=== PATIENT | male | born 1990 | race Caucasian/White ===

== ENCOUNTER 2023-04-03 19:14 | Emergency (ER) | payer BC, SELFPAY ==
[2023-04-03] VITALS (11 sets, daily range): BP systolic 92–185; BP diastolic 43–95; PULSE 86–145; RESP 14–25; TEMP 36.9; O2SAT 94–97; BMI 36.9
--- NOTE | 2023-04-03 19:31 | ECG_ITS ---
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
--- NOTE | 2023-04-03 19:33 | ED_ITS ---
HPI - Arrhythmia/Palpitations General Chief Complaint: Chest Pain Stated Complaint: CHEST PAIN Time Seen by Provider: 04/03/23 19:17 Source: patient and family Source comment: Pt slurring speech and feels like he is going to pass out. Mode of arrival: Wheelchair History of Present Illness HPI narrative: patient is a 32-year-old male who presents to the emergency department for an onset of palpitations and sensation of his heart racing about forty minutes ago. Patient had a similar episode six weeks ago and was managed by his PCP for an onset of atrial fibrillation, his states that he only took the medication he was prescribed for one day because his symptoms subsided. He has not seen a security attendant. He did not follow-up for Holter monitoring over fourteen days as he was instructed. He states he feels very dizzy, lightheaded like he may pass out. Patient's answers majority of questions about his history. He has had no recent illness and not been taking any [id number] stimulants or medic ations. Related Data Home Medications Medication Instructions Recorded Confirmed lisinopril 20 mg tablet 20 mg PO QDAY 04/03/23 04/03/23 tadalafil 5 mg tablet 5 mg PO QDAY 04/03/23 04/03/23 testosterone cypionate 200 mg/mL mg subcut Q7D 04/03/23 intramuscular oil Previous Rx's Medication Instructions Recorded metoprolol tartrate 25 mg tablet 25 mg PO DAILY #10 tabs 04/03/23 Allergies Allergy/AdvReac Type Severity Reaction Status Date / Time No Known Drug Allergies Allergy Verified 04/03/23 19:29 Review of Systems ROS Constitutional Denies: fever or chills Ears, nose, mouth, and throat Denies: throat pain Cardiovascular Reports: palpitations; Denies: chest pain Respiratory Reports: shortness of breath Gastrointestinal Denies: nausea or vomiting Integumentary/Breast Denies: rash Neurological Reports: dizziness; Denies: headache Allergic/Immunologic Denies: hives PFSH [facility] Social History Smoking status: Former smoker Exam Narrative Exam Narrative: Gen.: Awake, alert, in no distress Head: Normocephalic, atraumatic ENT: Moist mucous membranes Respiratory: No respiratory distress, lungs clear bilaterally Cardio: tachycardia Gastrointestinal: Abdomen is soft, nondistended and nontender to palpation Extremities: Moves extremities equally, no injuries noted Psych: Normal mood and affect Neuro: No focal neuro deficit Skin: Warm, diaphoretic, intact Constitutional Vital Signs, click to edit/add: Last Vital Signs Temp 98.4 F 04/03/23 19:21 Pulse 92 H 04/03/23 21:15 Resp 14 04/03/23 21:15 BP 131/82 H 04/03/23 21:30 Pulse Ox 95 04/03/23 21:15 O2 Del Method Room Air 04/03/23 19:21 Course Vital Signs Vital signs: Vital Signs Temperature 98.4 F 04/03/23 19:21 Pulse Rate 91 H 04/03/23 19:21 Respiratory Rate 14 04/03/23 19:21 Blood Pressure 185/95 H 04/03/23 19:21 Pulse Oximetry 95 04/03/23 19:21 Oxygen Delivery Method Room Air 04/03/23 19:21 Temperature 98.4 F 04/03/23 19:21 Pulse Rate 92 H 04/03/23 21:15 Respiratory Rate 14 04/03/23 21:15 Blood Pressure 131/82 H 04/03/23 21:30 Pulse Oximetry 95 04/03/23 21:15 Oxygen Delivery Method Room Air 04/03/23 19:21 MDM - Arrhythmia/Palpitations MDM Narrative Medical decision making narrative: on arrival to the emergency department, patient's initial vital signs show tachycardia and he was noted to be in an atrial rhythm, possibly atrial fibrillation versus sinus tachycardia. After labs, IV and Cardizem were ordered for him, it was noted that the patient had converted to normal sinus rhythm. Repeat EKG shows rate controlled normal sinus rhythm with no acute changes. Given the patient's clinical history he is still going to undergo a workup, labs and d-dimer are within normal limits. patient has stable vital signs after conversion to normal sinus. Discussed with patient and his that he should be back on metoprolol 25 mg daily and follow with cardiology. He is given a referral for electrophysiology at [facility] as well. Follow-up with PCP and cardiology and return to the Emergency Room if symptoms change or worsen. Potassium was noted to be low, this was replenished in the emergency department. patient was reevaluated by attending physician after he converted to normal sinus rhythm, stable for discharge at this time Medical Records Attestation: I reviewed the patient's medical records. Lab Data Attestation: I reviewed the patient's lab results. Labs: Lab Results 04/03/23 04/03/23 Range/Units 19:30 19:45 WBC 13.2 H (4.0-11.0) 10^3/uL RBC 5.57 (4.70-6.10) 10^6/uL Hgb 15.3 (14.0-18.0) g/dL Hct 49.1 (42.0-54.0) % MCV 88.2 (80.0-94.0) fL MCH 27.5 (25.9-34.0) pg MCHC 31.2 (29.9-35.2) g/dL RDW 14.4 (11.0-15.0) % Plt Count 338 (150-450) 10^3/uL MPV 11.6 (9.5-13.5) fL Seg Neuts % (Manual) 43.0 Lymphocytes % (Manual) 22.0 (20.5-60.0) % Atypical Lymphs % (Man) 22.0 % Monocytes % (Manual) 10.0 (1.7-12.0) % Eosinophils % (Manual) 3.0 (0.9-7.0) % Basophils % (Manual) 0.0 L (0.2-2.0) % Neutrophils # (Manual) 5.67 (1.4-6.5) 10^3/uL Lymphocytes # (Manual) 2.90 (1.20-3.80) 10^3/uL Monocytes # (Manual) 1.32 H (0.30-0.80) 10^3/uL Eosinophils # (Manual) 0.39 (0.00-0.70) 10^3/uL Basophils # (Manual) 0.00 (0.00-0.10) 10^3/uL PT 11.2 (9.0-11.6) sec INR 1.06 APTT 21.4 L (22.3-36.2) sec D-Dimer 0.19 (<=0.59) mg/L FEU Sodium 138 (136-145) mmol/L Potassium 2.6 L* (3.5-5.1) mmol/L Chloride 101 (98-107) mmol/L Carbon Dioxide 23.5 (21.0-32.0) mmol/L Anion Gap 16.1 BUN 12.0 (7.0-18.0) mg/dL Creatinine 1.35 H (0.70-1.30) mg/dL Est GFR ( Amer) >60 (>=60) Est GFR (Non-Af Amer) >60 (>=60) BUN/Creatinine Ratio 8.9 Glucose 143 H (74-106) mg/dL Calcium 8.5 (8.5-10.1) mg/dL Total Bilirubin 0.5 (0.2-1.0) mg/dL AST 36 (15-37) U/L ALT 43 (16-63) U/L Alkaline Phosphatase 37 L (46-116) U/L Troponin I High Sens 5.1 (4.0-76.1) pg/mL Total Protein 7.6 (6.4-8.2) g/dL Albumin 4.5 (3.4-5.0) g/dL Globulin 3.1 g/dL Albumin/Globulin Ratio 1.5 TSH 0.771 (0.358-3.740) uIU/mL Imaging Data Chest x-ray: Attestation: I have reviewed the pertinent imaging results. ECG Data Attestation: I personally reviewed and interpreted this ECG as follows: (EKG #1: Undetermined rhythm at a rate of 149, right bundle branch block with no acute ST elevation. EKG reviewed by attending physician EKG #2: Normal sinus rhythm at a rate of ninety-six with an incomplete right bundle-branch block, no acute ST elevation or ectopy. EKG reviewed by attending physici) Discharge Plan Discharge Chief Complaint: Chest Pain Clinical Impression: Palpitations, AF (paroxysmal atrial fibrillation) Patient Disposition: Home, Self-Care Time of Disposition Decision: 21:17 Condition: Good Mode of Transportation: Private Vehicle Prescriptions / Home Meds: New metoprolol tartrate 25 mg tablet 25 mg PO DAILY Qty: 10 0RF No Action lisinopril 20 mg tablet 20 mg PO QDAY tadalafil 5 mg tablet 5 mg PO QDAY testosterone cypionate 200 mg/mL oil subcut Q7D Instructions: A-fib (Atrial Fibrillation) (ED), Heart Palpitations (ED) Stand Alone Forms: Portal Instructions Referrals: FURLONG,CAIT G [Primary Care Provider] - 1 week Discharge Date/Time: 04/03/23 21:51
--- NOTE | 2023-04-03 19:38 | ECG_ITS ---
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
[2023-04-03] MEDS: 0.9 % SODIUM CHLORIDE 1,000 ML 1000 ML IV (19:48)
[2023-04-03 19:58] LABS: Hematocrit 49.1 % (42.0-54.0); Hemoglobin 15.3 g/dL (14.0-18.0); Mean Corpuscular HGB Conc 31.2 g/dL (29.9-35.2); Mean Corpuscular Hemoglobin 27.5 pg (25.9-34.0); Mean Corpuscular Volume 88.2 fL (80.0-94.0); Mean Platelet Volume 11.6 fL (9.5-13.5); Platelet Count 338 10^3/uL (150-450); Red Blood Count 5.57 10^6/uL (4.70-6.10); Red Cell Distribution Width 14.4 % (11.0-15.0); White Blood Count 13.2 10^3/uL (4.0-11.0)
[2023-04-03 20:16] LABS: D Dimer 0.19 mg/L FEU (<=0.59); INR 1.06; Partial Thromboplastin Time 21.4 sec (22.3-36.2); Prothrombin Time 11.2 sec (9.0-11.6)
--- NOTE | 2023-04-03 20:20 | XR_ITS ---
The [address] [address] Patient Name: VALERI COLEMAN MRN: [id number] date: 1990 Sex: M Assigned Patient Location: ER Current Patient Location: ER Accession/Order Number: [id number] Exam Date: 04/03/2023 20:25 Report Date: 04/03/2023 21:08 At the request of: NIKKIE AGUILLON Procedure: XR chest 1V EXAM: XR chest 1V HISTORY: Palpitations COMPARISON: None. TECHNIQUE: AP portable study FINDINGS: There are bibasilar infiltrates, more prominent on the left than on the right. Cardiomegaly is noted. Bony structures are unremarkable. XR/XR chest 1V IMPRESSION: Cardiomegaly Bibasilar infiltrates. Differential considerations include atelectasis versus early pneumonia. Electronically authenticated by: Nallely AMBROSIO Date: 04/03/2023 21:08
[2023-04-03 20:24] LABS: Eosinophils Absolute Manual 0.39 10^3/uL (0.00-0.70); Monocytes Absolute Manual 1.32 10^3/uL (0.30-0.80); Segmented Neut Absolute Manual 5.67 10^3/uL (1.4-6.5)
[2023-04-03 20:24] LABS: Alanine Aminotransferase 43 U/L (16-63); Albumin Globulin Ratio 1.5; Albumin Level 4.5 g/dL (3.4-5.0); Alkaline Phosphatase 37 U/L (46-116); Anion Gap 16.1; Aspartate Amino Transferase 36 U/L (15-37); BUN Creatinine Ratio 8.9; Bilirubin Total 0.5 mg/dL (0.2-1.0); Calcium 8.5 mg/dL (8.5-10.1); Carbon Dioxide 23.5 mmol/L (21.0-32.0); Chloride 101 mmol/L (98-107); Estimated GFR (African America >60 (>=60); Estimated GFR (Non-African Ame >60 (>=60); Globulin 3.1 g/dL; Glucose 143 mg/dL (74-106); Sodium 138 mmol/L (136-145); Total Protein 7.6 g/dL (6.4-8.2); Troponin I High Sensitivity 5.1 pg/mL (4.0-76.1)
[2023-04-03 20:25] LABS: Thyroid Stimulating Hormone 0.771 uIU/mL (0.358-3.740)
[2023-04-03 20:27] LABS: Potassium 2.6 mmol/L (3.5-5.1)
[2023-04-03] MEDS: POTASSIUM CHLORIDE 10 MEQ ER TABLET 40 MEQ PO (20:41)
[2023-04-03] MEDS: POTASSIUM CHLORIDE IN WATER 10 MEQ/100 ML PIGGYBACK 100 MEQ IV (20:41)
== END 2023-04-03 21:51 | disposition home or self-care (01) ==
PROVIDERS: Physician Assistant; Emergency Provider Emergency Medicine; PCP Family Medicine
DX: R00.2 Palpitations (principal); I48.0 Paroxysmal atrial fibrillation; Z79.899 Other long term (current) drug therapy; Z87.891 Personal history of nicotine dependence
CPT/HCPCS: 36415; 71045; 80053; 84443; 84484; 85007; 85025; 85378; 85610; 85730; 93005; 96361; 96365; 99285

== ENCOUNTER 2024-11-10 12:20 | Observation (INO) | payer BC, SELFPAY ==
[2024-11-10] VITALS (32 sets, daily range): BP systolic 105–172; BP diastolic 65–119; PULSE 50–149; TEMP 36.4–37.2; O2SAT 96–100; BMI 38.0; BMI 38.5
--- NOTE | 2024-11-10 12:49 | ECG_ITS ---
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
[2024-11-10 13:06] LABS: Basophils Percent Auto 0.2 % (0.2-2.0); Eosinophils Absolute Auto 0.1 10^3/uL (0.0-0.7); Eosinophils Percent Auto 0.6 % (0.9-7.0); Hemoglobin 16.1 g/dL (14.0-18.0); Immature Granulocytes Abs Auto 0.03 10^3/uL (0.00-0.03); Immature Granulocytes Pct Auto 0.4 % (0.0-0.5); Lymphocytes Absolute Auto 2.2 10^3/uL (1.2-3.8); Mean Corpuscular HGB Conc 32.9 g/dL (29.9-35.2); Mean Corpuscular Hemoglobin 29.1 pg (25.9-34.0); Mean Corpuscular Volume 88.6 fL (80.0-94.0); Mean Platelet Volume 11.8 fL (9.5-13.5); Monocytes Absolute Auto 0.8 10^3/uL (0.3-0.8); Monocytes Percent Auto 9.2 % (1.7-12.0); Neutrophils Absolute Auto 5.2 10^3/uL (1.4-6.5); Neutrophils Percent Auto 62.6 % (43.0-75.0); Platelet Count 245 10^3/uL (150-450); Red Blood Count 5.53 10^6/uL (4.70-6.10); Red Cell Distribution Width 13.2 % (11.0-15.0); White Blood Count 8.3 10^3/uL (4.0-11.0)
[2024-11-10] MEDS: 0.9 % SODIUM CHLORIDE 1,000 ML 1000 ML IV (13:10)
[2024-11-10] MEDS: METOPROLOL TARTRATE 5 MG/5 ML VIAL IVP (13:10)
[2024-11-10 13:19] LABS: INR 1.03; Prothrombin Time 10.9 sec (9.0-11.6)
[2024-11-10 13:23] LABS: Cannabinoid Screen Urine POSITIVE (NEGATIVE)
[2024-11-10 13:24] LABS: Amphetamine Screen Urine NEGATIVE (NEGATIVE); Barbiturates Screen Urine NEGATIVE (NEGATIVE); Benzodiazepines Screen Urine NEGATIVE (NEGATIVE); Buprenorphine Screen Urine NEGATIVE (NEGATIVE); Cocaine Screen Urine NEGATIVE (NEGATIVE); Methadone Screen Urine NEGATIVE (NEGATIVE); Methamphetamines Screen Urine NEGATIVE (NEGATIVE); Opiate Screen Urine NEGATIVE (NEGATIVE); Oxycodone Screen Urine NEGATIVE (NEGATIVE); Phencyclidine Screen Urine NEGATIVE (NEGATIVE); Tricyclic Antidepressant Urine NEGATIVE (NEGATIVE)
[2024-11-10 13:31] LABS: Alanine Aminotransferase 41 U/L (16-63); Albumin Globulin Ratio 1.3; Albumin Level 4.4 g/dL (3.4-5.0); Alkaline Phosphatase 44 U/L (46-116); Anion Gap 13.2; Aspartate Amino Transferase 29 U/L (15-37); BUN Creatinine Ratio 8.6; Bilirubin Total 0.5 mg/dL (0.2-1.0); Calcium 9.2 mg/dL (8.5-10.1); Carbon Dioxide 29.6 mmol/L (21.0-32.0); Chloride 101 mmol/L (98-107); Estimated GFR (African America >60 (>=60 mL/min/1.73m^2); Estimated GFR (Non-African Ame 58 (>=60 mL/min/1.73m^2); Globulin 3.4 g/dL; Glucose 81 mg/dL (74-106); Magnesium 1.7 mg/dL (1.8-2.4); Potassium 3.8 mmol/L (3.5-5.1); Sodium 140 mmol/L (136-145); Total Protein 7.8 g/dL (6.4-8.2); Troponin I High Sensitivity 7.5 pg/mL (4.0-76.1)
[2024-11-10 13:33] LABS: Ethanol <3 mg/dL
[2024-11-10 13:34] LABS: Thyroid Stimulating Hormone 3.388 uIU/mL (0.358-3.740)
[2024-11-10] MEDS: MAGNESIUM SULFATE/D5W 1 GM/100 ML PREMIX IV (14:36)
--- NOTE | 2024-11-10 14:58 | ECG_ITS ---
The [facility] Test Date: 2024-11-10 Pat Name: VALERI COLEMAN Department: Room: - Gender: Male Triage Clinician: : 1990 Requested By: [id number] Order Number: [id number] Reading MD: BALTAZAR DUARTE Measurements Intervals [place] Rate: 103 P: -25377 [place]: -63205 QRS: 18 QRSD: 102 T: 35 QT: 324 QTc: 383 Interpretive Statements 22554 Atrial fibrillation with rapid ventricular response 9140 abnormal rhythm ECG Compared to ECG 11/10/2024 12:37:16 Incomplete right bundle-branch block no longer present Electronically Signed On 11-10-2024 20:28:45 EST by BALTAZAR DUARTE
--- NOTE | 2024-11-10 15:25 | ED.ARRPALP1 ---
HPI - Arrhythmia/Palpitations General Chief Complaint: Arrhythmia/Palpitations Stated Complaint: CHEST PAINS POSSIBLE A FIB Time Seen by Provider: 11/10/24 12:49 Source: patient Mode of arrival: walk-in Limitations: no limitations History of Present Illness HPI narrative: The patient is a 34-year-old male who just came from his a 1 week trip to [place] Sunday, mentioned that today he just was working at his computer when he noted that his heart was racing and felt some chest pressure, there was no chest pain and there was no specific dizziness although he did not say that he did was not dizzy The patient denies any nausea vomiting or any other concerns he denies any diagnosis before of A-fib but he had 2 years ago similar episode that resolved before he got to the hospital and they never detected that on the Holter monitor Patient does take metoprolol to tartrate 1 dose daily and he does not take any blood thinner Related Data Home Medications ?Medication ?Instructions ?Recorded ?Confirmed lisinopril 20 mg tablet 20 mg PO QDAY 04/03/23 11/10/24 tadalafil 5 mg tablet 5 mg PO QDAY 04/03/23 11/10/24 testosterone cypionate 200 mg/mL 200 mg subcut Q7D 04/03/23 11/10/24 intramuscular oil metoprolol succinate 25 mg 25 mg PO DAILY 11/10/24 11/10/24 tablet,extended release 24 hr Allergies Allergy/AdvReac Type Severity Reaction Status Date / Time No Known Drug Allergies Allergy Verified 04/03/23 19:29 Review of Systems ROS Status of ROS 10 or more systems reviewed and unremarkable except as noted in history and below PFSH PFS Social History Smoking status: Former smoker Exam Narrative Exam Narrative: Nurses notes and vital signs reviewed and patient is not hypoxic. General: Well-appearing and in no apparent distress. Skin: Warm, dry, no pallor noted. No rash. Head: Normocephalic, atraumatic. Neck: Supple, non-tender. Eye: Pupils are equal, round and EOMI. No scleral icterus. Ears, Nose, Mouth, and Throat: TM are clear, no nasal mucosal hypertrophy. Oral mucosa is moist, no posterior oropharynx erythema, uvula is mid-line Cardiovascular: Irregular rate and Rhythm without murmur, gallop or rub. Respiratory: No accessory muscle use or respiratory distress. Lungs are clear to auscultation, no wheezing, rales or rhonchi Chest Wall: no tenderness Back: No midline thoracic or lumbar vertebral tenderness. No CVA tenderness Musculoskeletal: normal ROM, no calf or popliteal tenderness, no lower extremity edema/swelling GI: Abdomen is soft, non-distended. Normal bowel sounds. No masses appreciated. Constitutional Vital Signs, click to edit/add: Last Vital Signs Temp 99.0 F 11/10/24 12:39 Pulse 128 H 11/10/24 12:39 Resp 18 11/10/24 12:39 BP 142/86 H 11/10/24 12:39 Pulse Ox 99 11/10/24 12:39 O2 Del Method Room Air 11/10/24 12:39 Course Vital Signs Vital signs: Vital Signs Temperature 99.0 F 11/10/24 12:39 Pulse Rate 128 H 11/10/24 12:39 Respiratory Rate 18 11/10/24 12:39 Blood Pressure 142/86 H 11/10/24 12:39 Pulse Oximetry 99 11/10/24 12:39 Oxygen Delivery Method Room Air 11/10/24 12:39 Temperature 99.0 F 11/10/24 12:39 Pulse Rate 128 H 11/10/24 12:39 Respiratory Rate 18 11/10/24 12:39 Blood Pressure 142/86 H 11/10/24 12:39 Pulse Oximetry 99 11/10/24 12:39 Oxygen Delivery Method Room Air 11/10/24 12:39 MDM - Arrhythmia/Palpitations MDM Narrative Medical decision making narrative: Upon arrival the patient was found to be A-fib heart rate 154 with a A-fib RVR The patient initially was provided with IV fluid in addition to replacing his magnesium that was low with 1 g of magnesium The patient also had 1 dose of Lopressor that was enough to lower his heart rate to 103 still in A-fib and he still have symptoms of palpitation and chest pressure The patient case was discussed with the building equipment operator on-call Dr. Farnsworth and she recommended the patient to be started Toprol XL and Eliquis and to be admitted overnight to have a echo done and in case no cardioversion further management will be done as inpatient by cardiology Patient case was discussed with and she agreed with above-mentioned plan Lab Data Labs: Lab Results 11/10/24 Range/Units 12:50 WBC 8.3 (4.0-11.0) 10^3/uL RBC 5.53 (4.70-6.10) 10^6/uL Hgb 16.1 (14.0-18.0) g/dL Hct 49.0 (42.0-54.0) % MCV 88.6 (80.0-94.0) fL MCH 29.1 (25.9-34.0) pg MCHC 32.9 (29.9-35.2) g/dL RDW 13.2 (11.0-15.0) % Plt Count 245 (150-450) 10^3/uL MPV 11.8 (9.5-13.5) fL Neut % (Auto) 62.6 (43.0-75.0) % Lymph % (Auto) 27.0 (20.5-60.0) % [place] % (Auto) 9.2 (1.7-12.0) % Eos % (Auto) 0.6 L (0.9-7.0) % Baso % (Auto) 0.2 (0.2-2.0) % Neut # (Auto) 5.2 (1.4-6.5) 10^3/uL Lymph # (Auto) 2.2 (1.2-3.8) 10^3/uL [place] # (Auto) 0.8 (0.3-0.8) 10^3/uL Eos # (Auto) 0.1 (0.0-0.7) 10^3/uL Baso # (Auto) 0.0 (0.0-0.1) 10^3/uL Abs Immat Gran (auto) 0.03 (0.00-0.03) 10^3/uL Imm/Tot Granulo (auto) 0.4 (0.0-0.5) % PT 10.9 (9.0-11.6) sec INR 1.03 Sodium 140 (136-145) mmol/L Potassium 3.8 (3.5-5.1) mmol/L Chloride 101 (98-107) mmol/L Carbon Dioxide 29.6 (21.0-32.0) mmol/L Anion Gap 13.2 BUN 12.0 (7.0-18.0) mg/dL Creatinine 1.39 H (0.70-1.30) mg/dL Est GFR ( Amer) >60 (>=60 mL/min/1.73m^2) Est GFR (Non-Af Amer) 58 L (>=60 mL/min/1.73m^2) BUN/Creatinine Ratio 8.6 Glucose 81 (74-106) mg/dL Calcium 9.2 (8.5-10.1) mg/dL Magnesium 1.7 L (1.8-2.4) mg/dL Total Bilirubin 0.5 (0.2-1.0) mg/dL AST 29 (15-37) U/L ALT 41 (16-63) U/L Alkaline Phosphatase 44 L (46-116) U/L Troponin I High Sens 7.5 (4.0-76.1) pg/mL Total Protein 7.8 (6.4-8.2) g/dL Albumin 4.4 (3.4-5.0) g/dL Globulin 3.4 g/dL Albumin/Globulin Ratio 1.3 TSH 3.388 (0.358-3.740) uIU/mL Urine Opiates Screen Negative (NEGATIVE) Ur Buprenorphine Scrn Negative (NEGATIVE) Ur Oxycodone Screen Negative (NEGATIVE) Urine Methadone Screen Negative (NEGATIVE) Ur Barbiturates Screen Negative (NEGATIVE) U Tricyclic Antidepress Negative (NEGATIVE) Ur Phencyclidine Scrn Negative (NEGATIVE) Ur Amphetamines Screen Negative (NEGATIVE) U Methamphetamines Scrn Negative (NEGATIVE) U Benzodiazepines Scrn Negative (NEGATIVE) Urine Cocaine Screen Negative (NEGATIVE) U Cannabinoids Screen Positive A (NEGATIVE) Ethanol Quant <3 mg/dL Discharge Plan Discharge Chief Complaint: Arrhythmia/Palpitations Clinical Impression: Atrial fibrillation with rapid ventricular response Patient Disposition: Admitted As Inpatient Time of Disposition Decision: 15:28
[2024-11-10] MEDS: METOPROLOL SUCCINATE 50 MG TAB.ER.24H PO (15:41)
[2024-11-10] MEDS: APIXABAN 5 MG TABLET PO ×2 (15:41→20:53)
--- NOTE | 2024-11-10 17:20 | PM.HP ---
HPI H&P: HPI History of Present Illness Chief complaint: AFIB RVR NEW ONSET Narrative: Patient is a 34 y.o White male with past medical history of Hypertension, testosterone deficiency, who presented today after increased heart rate and SOB while at work today. This occurred about 4 hours ago. He presented to the ER with HR in the 130's and some SOB and EKG was consistent with new onset Afib with RVR. He was given IV metoprolol 5mg IVP. HR came down to 100's. He notes he had episode similar in february of 2023 and he seen a hardboard supervisor at [facility] had a normal work up including echo and holter monitor at that time. He denies any recent alcohol use, illicit drug use. May have underlying sleep apnea as he does snore according to his . He has had no dosage changes on his Testosterone and has been on it for 2 years. Recent Trip to [facility] and just returned last week. No family history of heart issues. Patient denies chest pain, no sob, just feels his HR beating fast. ER findings: WBC's 8.3, Hb 16.1, Cr 1.39, mag 1.7, K 3.8, Trop 7.5, TSH 3.388, ProBNP normal, UDS positive for THC Opioid HPI Opioid Management Most Recent Pain and Opioid Data: Last Pain Scale 10 04/03/23 19:42 04/03/23 Last Pain Assessment 11/10/24 17:00 Last ORT Total Score 4 11/10/24 16:32 11/10/24 Last ORT Risk Category Moderate Risk 11/10/24 16:32 11/10/24 Ur Phencyclidine Scrn Negative (NEGATIVE) 11/10/24 12:50 11/10/24 Review of Systems ROS Narrative ROS: a complete review of systems were reviewed with patient and are positive as below or listed in History of Chief Complaint. General: no fever, chills, night sweats Head: no headache, trauma, visual changes, nausea or vomiting Skin: no reported rashes, itching or sores Eyes: no blurriness of vision Ears: no reported hearing loss, vertigo, earache, or tinnitus Throat: no sore throat, hoarseness, swelling of neck, or tongue pain Heart: no chest pain, increased HR Lungs: no shortness of breath or cough GI: no diarrhea or vomiting/nausea Urinary: no urinary urgency, frequency or pain Neuro: no numbness or tingling HEM: no bleeding issues or bruising ENDO: no thyroid problems Psych: no anxiety or depression PFSH PFS Medical History (Updated 11/10/24 @ 17:34 by Teresita Walker DO) Low testosterone in male ?R79.89 - Other specified abnormal findings of blood chemistry (ICD-10) Hypertension ?I10 - Essential (primary) hypertension (ICD-10) Surgical History History of cervical spinal surgery ?Z98.890 - Other specified postprocedural states (ICD-10) History of hip replacement ?Z96.649 - Presence of unspecified artificial hip joint (ICD-10) Social History Within the past year, how often did you have a drink containing alcohol: never Score interpretation: A score less than 4 is consistent with normal alcohol consumption. Smoking status: Former smoker Non-prescribed substance use: cannabis (any form) Known occupational exposures/hazards details: chemicals Highest level of school completed/degree received: Bachelor's degree Little interest or pleasure in doing things: not at all Feeling down, depressed, or hopeless: not at all Feel stressed/tense/nervous/anxious/difficulty sleeping: not at all Do you think of yourself as: straight/heterosexual Gender Identity: male Meds Home Medications and Allergies Home Medications ?Medication ?Instructions ?Recorded ?Confirmed ?Type lisinopril 20 mg tablet 20 mg PO QDAY 04/03/23 11/10/24 History tadalafil 5 mg tablet 5 mg PO QDAY 04/03/23 11/10/24 History testosterone cypionate 200 mg/mL 200 mg subcut Q7D 04/03/23 11/10/24 History intramuscular oil metoprolol succinate 25 mg 25 mg PO DAILY 11/10/24 11/10/24 History tablet,extended release 24 hr Allergies Allergy/AdvReac Type Severity Reaction Status Date / Time No Known Drug Allergies Allergy Verified 04/03/23 19:29 Exam Narrative Exam Narrative: General: Patient is alert, and oriented to person, place and time with normal affect, proper hygiene Skin: no visible rashes, or ulcers Head: atraumatic, acephalic Eyes: PERRLA, no nystagmus present, conjunctiva clear, no scleral icterus Ears: normal gross auditory acuity Heart: irregular rate and irregular rhythm, no murmurs/rubs/gallops Lungs: no audible wheezes, crackles and normal breath sounds all lung friedman Abdomen: Normal audible bowel sounds, no distension, No palpable masses, no organomegaly, no rebound/guarding/ or rigidity Musculoskeletal: no swelling bilateral lower extremities Neuro: CN II-X grossly intact Constitutional Vital Signs, click to edit/add: Last Vital Signs Temp 98.0 F 11/10/24 16:32 Pulse 103 H 11/10/24 16:32 Resp 16 11/10/24 15:41 BP 138/89 11/10/24 16:32 Pulse Ox 97 11/10/24 16:32 O2 Del Method Room Air 11/10/24 16:32 Results Labs Labs: Short CBC 11/10/24 Range/Units 12:50 WBC 8.3 (4.0-11.0) 10^3/uL Hgb 16.1 (14.0-18.0) g/dL Hct 49.0 (42.0-54.0) % Plt Count 245 (150-450) 10^3/uL BMP 11/10/24 12:50 Sodium 140 Potassium 3.8 Chloride 101 Carbon Dioxide 29.6 BUN 12.0 Creatinine 1.39 H Glucose 81 Calcium 9.2 Liver Function 11/10/24 Range/Units 12:50 Total Bilirubin 0.5 (0.2-1.0) mg/dL AST 29 (15-37) U/L ALT 41 (16-63) U/L Alkaline Phosphatase 44 L (46-116) U/L Albumin 4.4 (3.4-5.0) g/dL Assessment and Plan Assessment and Plan (1) Atrial fibrillation with rapid ventricular response: Assessment and Plan: Given IVP metoprolol 5mg x 1, will place on Metoprolol 50mg BID and Eliquis 5mg BID. Will check ECHO. Patient not hypoxic. Low suspicion for PE. ProBnP and trop's normal. check lipids, glycohemoglobin in the morning. Patient is on telemetry. Cardiology consult for further recommendations. (2) Hypomagnesemia: Assessment and Plan: 1.7, replaced iv by 2 grams, repeat in the morning. (3) Hypertension: Assessment and Plan: continue lisinopril and Metoprolol Qualifiers: Hypertension type: primary hypertension Qualified Code(s): I10 - Essential (primary) hypertension (4) Low testosterone in male: Assessment and Plan: takes testosterone supplements Plan Patient is a full code Patient is on Eliquis Patient is in observation status and will get echo and cardiology consult tomorrow.
--- NOTE | 2024-11-10 17:56 | ECG_ITS ---
The [facility] Test Date: 2024-11-10 Pat Name: VALERI COLEMAN Department: Room: [facility] Gender: Male Strategy Director: : 1990 Requested By: [id number] Order Number: [id number] Reading MD: BALTAZAR DUARTE Measurements Intervals [place] Rate: 58 P: 73 [place]: 174 QRS: 25 QRSD: 116 T: 28 QT: 374 QTc: 371 Interpretive Statements 1100 Sinus rhythm 2440 Incomplete right bundle branch block 4068 Nonspecific Twave abnormality 9130 borderline ECG Compared to ECG 11/10/2024 14:59:34 Incomplete right bundle-branch block now present Atrial fibrillation no longer present Electronically Signed On 11-10-2024 20:29:22 EST by BALTAZAR DUARTE
[2024-11-10] MEDS: METOPROLOL TARTRATE 50 MG TABLET PO (20:53)
--- NOTE | 2024-11-10 21:13 | PC.NURSE ---
pt requested IV to be removed from his right antecube, he complains of it really bothering him. It's sore and doenst feel right. educated of the hospital policy and pt agreed to allow IV restart should he need an IV medication
[2024-11-11] VITALS (47 sets, daily range): BP systolic 115–141; BP diastolic 68–78; PULSE 50–81; TEMP 36.5; O2SAT 98
[2024-11-11 05:01] LABS: Basophils Percent Auto 0.3 % (0.2-2.0); Eosinophils Absolute Auto 0.1 10^3/uL (0.0-0.7); Hematocrit 50.1 % (42.0-54.0); Hemoglobin 16.2 g/dL (14.0-18.0); Immature Granulocytes Abs Auto 0.01 10^3/uL (0.00-0.03); Immature Granulocytes Pct Auto 0.1 % (0.0-0.5); Lymphocytes Percent Auto 29.7 % (20.5-60.0); Mean Corpuscular HGB Conc 32.3 g/dL (29.9-35.2); Mean Corpuscular Hemoglobin 28.7 pg (25.9-34.0); Mean Corpuscular Volume 88.8 fL (80.0-94.0); Mean Platelet Volume 11.6 fL (9.5-13.5); Monocytes Absolute Auto 0.7 10^3/uL (0.3-0.8); Monocytes Percent Auto 9.5 % (1.7-12.0); Neutrophils Percent Auto 59.4 % (43.0-75.0); Platelet Count 263 10^3/uL (150-450); Red Blood Count 5.64 10^6/uL (4.70-6.10); Red Cell Distribution Width 13.4 % (11.0-15.0); White Blood Count 6.8 10^3/uL (4.0-11.0)
[2024-11-11 05:21] LABS: Estimated Average Glucose 100 mg/dL; Glycohemoglobin A1C 5.1 % (4.5-6.2)
[2024-11-11 05:22] LABS: Alanine Aminotransferase 35 U/L (16-63); Albumin Globulin Ratio 1.2; Albumin Level 3.8 g/dL (3.4-5.0); Alkaline Phosphatase 41 U/L (46-116); Anion Gap 11.8; Aspartate Amino Transferase 26 U/L (15-37); BUN Creatinine Ratio 9.2; Bilirubin Total 0.5 mg/dL (0.2-1.0); Carbon Dioxide 28.7 mmol/L (21.0-32.0); Chloride 103 mmol/L (98-107); Chol HDL Ratio 4.2; Cholesterol 184 mg/dL (<=200); Estimated GFR (African America >60 (>=60 mL/min/1.73m^2); Estimated GFR (Non-African Ame >60 (>=60 mL/min/1.73m^2); Globulin 3.2 g/dL; Glucose 89 mg/dL (74-106); HDL Cholesterol 44 mg/dL (40-60); LDL Cholesterol Calculated 110.8 mg/dL; Magnesium 2.1 mg/dL (1.8-2.4); Potassium 4.5 mmol/L (3.5-5.1); Sodium 139 mmol/L (136-145); Triglycerides 146 mg/dL (<=150); VLDL CHOLESTEROL 29.2 mg/dL
[2024-11-11 05:24] LABS: Troponin I High Sensitivity 6.6 pg/mL (4.0-76.1)
--- OUTSIDE RECORDS SUMMARY | 2024-11-11 07:13 | XMS_ITS | CCD ---
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 educational purposes only.) Performed By: #### 7 600, 62333, 84540 #### [facility] [address] [facility], [address] [place] [address] Textile Colorist Dyer: Jose Raul Carrillo MD Vital Signs Date Time Vital Sign Value Performing Clinician Cali hernandez 10-29-2024 16:28-0500 Body height 182.88 cm [employer] DO Work Phone: [facility] 10-29-2024 16:28-0500 Body mass index (BMI) [Ratio] 37.5 kg/m2 Ace Thrill Onng DO Work Phone: [facility] 10-29-2024 16:28-0500 Body temperature 98 [degF] Ace Thrill Onng DO Work Phone: [facility] 10-29-2024 16:28-0500 Body weight 125.64 kg Ace [employer] DO Work Phone: [facility] 10-29-2024 16:28-0500 Diastolic blood pressure 76 mm[Hg] Ace Thrill Onng DO Work Phone: [facility] 10-29-2024 16:28-0500 Heart rate 70 /min Ace [employer] DO Work Phone: [facility] 10-29-2024 16:28-0500 Respiratory rate 14 /min Ace [employer] DO Work Phone: [facility] 10-29-2024 16:28-0500 SaO2% (BldA) [Mass fraction] 99 % Ace Huff DO Work Phone: [facility] 10-29-2024 16:28-0500 Systolic blood pressure 136 mm[Hg] Ace Huff DO Work Phone: [facility] 12-04-2023 15:00-0400 Body height 182.9 cm Larisa Caraballo APRN-REGENERATOR OPERATOR Work Phone: [facility] 12-04-2023 15:00-0400 Body mass index (BMI) [Ratio] 36.27 kg/m2 Larisa Caraballo APRN-REGENERATOR OPERATOR Work Phone: [facility] 12-04-2023 15:00-0400 Body temperature 97.5 [degF] Larisa Caraballo APRN-REGENERATOR OPERATOR Work Phone: [facility] 12-04-2023 15:00-0400 Body weight 121.29 kg Larisa Caraballo APRN-REGENERATOR OPERATOR Work Phone: [facility] 12-04-2023 15:00-0400 Diastolic blood pressure 88 mm[Hg] Larisa Caraballo APRN-REGENERATOR OPERATOR Work Phone: [facility] 12-04-2023 15:00-0400 Heart rate 75 /min Larisa Caraballo APRN-REGENERATOR OPERATOR Work Phone: [facility] 12-04-2023 15:00-0400 SaO2% (BldA) [Mass fraction] 99 % Larisa Caraballo APRN-REGENERATOR OPERATOR Work Phone: [facility] 12-04-2023 15:00-0400 Systolic blood pressure 118 mm[Hg] Larisa Caraballo APRN-REGENERATOR OPERATOR Work Phone: [facility] Encounters Encounter Date Encounter Type Care Provider Facility Start: 10-29-2024 End: 10-29-2024 ambulatory Ace Huff DO Work Phone: [facility] Work Phone: Start: 10-29-2024 End: 10-29-2024 Patient encounter procedure Ace Hillsng DO Work Phone: [facility] Work Phone: Start: 10-07-2024 End: 10-07-2024 Orders Only Ace Huff DO Work Phone: [facility] Start: 08-25-2024 End: 08-25-2024 Refill Ace Hillsng DO Work Phone: [facility] Comment on above: Paroxysmal atrial fi brillation (CMS-HCC); Essential hypertension Start: 08-11-2024 End: 08-11-2024 Patient encounter procedure Ace Hillsng DO Work Phone: [facility] Work Phone: Start: 08-11-2024 End: 08-11-2024 ambulatory Joesph Francie Facility:[facility] Start: 05-29-2024 End: 06-03-2024 Telephone encounter [facility] Start: 05-28-2024 End: 05-28-2024 Refill [facility]oshni Manny [facility] Comment on above: Paroxysmal atrial fi brillation (CMS-HCC); Essential hypertension Start: 05-22-2024 End: 05-22-2024 Patient encounter procedure DO Ace Hillsng Work Phone: [facility] Work Phone: Start: 05-22-2024 End: 05-22-2024 ambulatory DO Ace Zavalalong Work Phone: [facility] Work Phone: Start: 01-21-2024 End: 01-25-2024 Telephone encounter Ace Hillsng DO Work [facility]: [facility] Start: 01-14-2024 End: 01-14-2024 ambulatory ROB SERNA Not Available Start: 01-07-2024 End: 01-07-2024 ambulatory ROB SERNA Not Available Start: 01-01-2024 End: 01-01-2024 ambulatory ROB SERNA Not Available Start: 12-08-2023 Refill Larisa Caraballo WHITE MIXING OPERATOR-REGENERATOR OPERATOR Work Phone: [facility] Comment on above: Acute right lumbar r adiculopathy Start: 12-04-2023 End: 12-04-2023 ambulatory LARISA CARABALLO [facility] Start: 12-04-2023 End: 12-04-2023 Office outpatient visit 15 minutes Larisa Caraballo WHITE MIXING OPERATOR-REGENERATOR OPERATOR Work Phone: [facility] Comment on above: Flu-like symptoms (P rimary Dx); Pharyngitis, unspecified etiology; Viral upper respiratory tract infection Start: 11-26-2023 End: 11-27-2023 ambulatory KEILA B APLING Not Available Start: 11-20-2023 Refill Ace barrios DO Work Phone: [facility] Comment on above: Paroxysmal atrial fi brillation ([facility]); Essential hypertension Start: 11-01-2023 ambulatory [facility] Start: 10-29-2023 Refill Roshni Manny [facility] Start: 10-25-2023 End: 10-25-2023 ambulatory [facility] Start: 10-09-2023 End: 10-09-2023 ambulatory ANN MARIE CASANOVA Not Available Start: 10-04-2023 ambulatory [facility] Start: 09-26-2023 End: 09-27-2023 ambulatory KEILA B APLING Not Available Start: 09-24-2023 End: 09-25-2023 ambulatory KEILA B APLING Not Available Start: 09-03-2023 End: 09-03-2023 ambulatory LARISA WOODARD [facility] Start: 11-15-2022 End: 11-15-[address] ACE HUFF Facility:[facility] Start: 10-09-2022 End: 10-09-[address] ACE HUFF Facility:[facility] Procedures Date Procedure Procedure Detail Performing Clinician Start: 10-29-2024 X-ray of right foot Chavez Huff DO Work Phone: Start: 12-04-2023 Iaadiadoo streptococ cus group a Larisa Caraballo WHITE MIXING OPERATOR-REGENERATOR OPERATOR Work Phone: Start: 12-04-2023 POCT INFLUENZA A/INF LUENZA B/SARS-COV-2 VERITOR Larisa Caraballo WHITE MIXING OPERATOR-REGENERATOR OPERATOR Work Phone: Start: 12-04-2023 Adult depression scr eening assessment Larisa Caraballo WHITE MIXING OPERATOR-REGENERATOR OPERATOR Work Phone: Start: 07-09-2023 Adult depression scr eening assessment Roshni Manny [employer] HELPER Plan of Treatment Date Care Activity Detail Author Start: 12-04-2024 End: 12-04-2024 Patient encounter procedure 12/04/2024 10:00 AM EDT [facility] [address] [place] [address] Ace Huff DO [address] [facility] [place] [address] [facility] Start: 12-03-2024 Adult BMI Screening Adult BMI Screen ing [facility] Start: 12-03-2024 Depression Screening Depression Scre ening [facility] Start: 12-03-2024 Tobacco Screening Tobacco Screening [facility] Start: 09-03-2024 Adult BMI Screening Adult BMI Screen ing [facility] Start: 09-03-2024 Tobacco Screening Tobacco Screening [facility] Start: 07-09-2024 Depression Screening Depression Scre ening [facility] Start: 05-18-2024 Influenza vaccination Influenza Vacc ine [facility] Start: 12-16-2023 Influenza vaccination Influenza Vacc [facility] Comment on above: Postponed from 05/18 (Patient Refused) Start: 05-18-2023 Influenza vaccination Influenza Vacc [facility] Start: 2007 DTaP,Tdap and Td Vaccines (1 - Tdap) DTaP,Tdap and Td Vaccines (1 - Tdap) [facility] Start: 2006 Adult BMI Follow Up Plan Adult BMI Follow Up Plan [facility] XR Foot - right GE 3 Views [facility] Immunizations Immunization Date Immunization Notes Care Provider Fa wesley 07-27-2017 Influenza, injectabl e, Madin Halie Canine Kidney, preservative free, quadrivalent Roshni Manny [facility] 07-27-2017 influenza virus vaccine, unspecified formulation Roshni Manny [facility] Payers Date Payer Category Payer Self-pay 2021 [employer] - Other ANTH [id number] 1988 Unknown [id number] 1988 Unknown [id number] 2..[id number] .2.593 1988 Unknown [id number] 2..840.1.914209.3.579 .2.1286 1988 Unknown [id number] 2..840.1.078369.3.579 .2.1286 1988 Unknown [id number] 2.16.840.1.585207.3.579 .2.9 1988 Unknown [id number] 2.16.840.1.113271.3.579 .2.9 1988 Unknown [id number] 2.16.840.1.666423.3.579 .2.1258 1988 Unknown [id number] 2.16.840.1.275683.3.579 .2.1258 1988 Unknown [id number] 2.16.840.1.817297.3.579 .2.1258 1988 Unknown [id number] 2.16.840.1.652221.3.579 .2.1258 1988 Unknown [id number] 2.16.840.1.465983.3.579 .2.1258 1988 Unknown [id number] 2.16.840.1.444947.3.579 .2.1258 1988 Unknown [id number] 2.16.840.1.626468.3.579 .2.1259 1959 Unknown 1959 Unknown [id number] Unknown [id number] 2.16.840.1.281594.3.579 .2.531 Unknown [id number] 2.16.840.1.579799.3.579 .2.531 Unknown [id number] 2.16840.1.335390.3.579 .2.531 Social History Date Type Detail Facility Start: 11-22-2023 End: 11-22-2023 Tobacco smoking status NYIS Never smoked tobacco (finding) [facility] Start: 1990 Sex Assigned At Male [facility] Start: 05-30-2022 Tobacco smoking stat us [facility] Ex-smoker [facility] Start: 09-17-2010 End: 09-17-2012 History of tobacco use Current smoker [facility] Start: 09-17-2010 End: 09-17-2012 History of tobacco use Cigarette Smoker [facility] Start: 05-30-2022 End: 05-31-2022 Cigarettes smoked current (pack per day) - Reported 0.3 [facility] Start: 05-30-2022 Tobacco use and exposure Gómez kirk smokeless tobacco user [facility] Start: 09-03-2023 End: 12-04-2023 Alcoholic beverage intake Ex-drinker (finding) [facility] Start: 05-31-2022 End: 07-09-2023 [facility] Utilities [facility] Has the [employer], or [employer] threatened to shut off services in your home in past 12Mo No [facility] Do you belong to any clubs or organizations such as holiness groups, unions, fraternal or athletic groups, or school groups? Yes [facility] Are you now , , , , never or living with a partner? [facility] How often to you hav e a drink containing alcohol? Never [facility] How many standard dr inks containing alcohol do you have on a typical day? Patient does not drink [facility] Do you feel stress - tense, restless, nervous, or anxious, or unable to sleep at night because your mind is troubled all the time - these days [OSQ] To some extent [facility] Start: 05-31-2022 Education 17 [facility] Start: 10-19-2021 Alcohol Comment not since 2017 [facility] Start: 1990 Sex assigned at Not on file [facility] Start: 2015 End: 10-30-2024 Sex Male (finding) [facility] Medical Equipment Procedure Code Equipment Code Equipment Origin al Text Equipment Identifier Dates Ins Actb 56mm 36 mm Ntrl Altrx - Sna - [id number] ()[id number](21)NA, [id number] FDA Start: 11-09-2020 Cup Actb 56mm Pn cl Sect Hip - Sna - [id number] ()[id number] ()[id number] [id number](21)NA, [id number] FDA Start: 11-09-2020 Hd Fem 36mm +8.5 mm 08/30 Tpr - Sna - [id number] ()[id number](21)KATERINE, [id number] FDA Start: 11-09-2020 Hip Dep Pf Cerm/Cerm Construct - Sna - [id number] Start: 11-09-2020 Elmntr Hl Drlc Pncl Hip Mrthn - Sna - [id number] ()[id number] ()[id number](21)KATERINE, [id number] FDA Start: 11-09-2020 Scr Hip Canc Cnn Gription 30mm - Sna - [id number] ()[id number](21)KATERINE, [id number] FDA Start: 11-09-2020 Scr Hip Canc Cnn Gription 30mm - Sna - [id number] ()[id number] ()[id number](21)KATERINE, [id number] FDA Start: 11-09-2020 Corail Hip Syste m Cementless Femoral Stem [id number]_[facility] Start: 11-09-2020 Comment on above: Description: HIGH OF FSET COLLAR Goals Date Patient Goal Desired Activity /State Personal health goal Comment on above: Formatting of this n ote might be different from the original. Evaluation of progress towards goal: Safe dc transition from hospital to home with family support and [facility] PT 360 Clinical Notes 10-04-2023 to 10-29-2024 Note Date & Type Note Facility 10-29-2024 Evaluation note Diagnosis Onset Date Resolution Contusion of right great toe without damage to nail acute October 29, 2 025 4:24pm [facility] Work Phone: [phone]) 557-328112-09-2024 Miscellaneous Notes* Telephone Encounter - Ace Huff DO - 08/25/2024 12:36 AM EST Rx sent in. He is due for a wellness anytime [facility] Telephone encounter Note* Telephone Encounter - Ace Huff DO - 08/25/2024 12:36 AM EST Rx sent in. He is due for a wellness anytime [facility]11-25-2024 NoteSperm Rapid ProgressiveNovember 2023 10:06am2 %[facility] [id number] [address]11-25-2024 NoteSperm Non-ProgressiveNovember 2023 10:06am13 %[facility] [id number] [address] [place], [place] [address]111-25-2024 NoteSperm Rapid ProgressiveNovember 2023 10:06am2 %[facility] [id number] [address] [place], [place] [address]111-25-2024 NoteSperm Non-ProgressiveNovember 2023 10:06am13 %[facility] [id number] [address] [place], [place] [address]109-12-2024 Miscellaneous Notes * Telephone Encounter - Bren Courtney CMA - 05/29/2024 9:15 AM EDT Patient contacted to schedule wellness * Telephone Encounter - Bren Courtney CMA - 05/29/2024 9:15 AM EDT LM to Cb [facility] Telephone encounter Note* Telephone Encounter - Bren Courtney CMA - 05/29/2024 9:15 AM EDT Patient contacted to schedule wellness [facility]09-12-2024 Telephone encounter Note* Telephone Encounter - Bren Courtney CMA - 05/29/2024 9:15 AM EDT LM to Cb [facility]09-11-2024 Miscellaneous Notes* Telephone Encounter - Ace Huff DO - 05/28/2024 8:42 AM EDT Prescription sent in. He is due for a wellness anytime [facility] Telephone encounter Note* Telephone Encounter - Ace Huff DO - 05/28/2024 8:42 AM EDT Prescription sent in. He is due for a wellness anytime [facility]09-05-2024 NoteSperm Rapid ProgressiveSeptember 2023 7:24am1 %[facility] [id number] [address] [place], [place] [address]109-05-2024 NoteSperm Non-ProgressiveSeptember 2023 7:24am30 %[facility] [id number] [address] [place], [place] [address]105-06-2024 Miscellaneous Notes * Telephone Encounter - Francine Coffman - 01/21/2024 10:38 AM EDT ----- Message from Ace Huff DO sent at 01/19/2024 10:55 AM EDT ----- Regarding: FW: wellness Set up at his convenience ----- Message ----- From: Ace Huff DO Sent: 01/16/2024 12:00 AM EDT To: Background Patient List Reminders Subject: wellness * Telephone Encounter - Francine Coffman - 01/21/2024 10:38 AM EDT Sent mychart msg * Telephone Encounter - Francine Coffman - 01/21/2024 10:38 AM EDT Will call back * Telephone Encounter - Francine Coffman - 01/21/2024 10:38 AM EDT Sending letter [facility] Telephone encounter Note* Telephone Encounter - Francine Coffman - 01/21/2024 10:38 AM EDT ----- Message from Ace Huff DO sent at 01/19/2024 10:55 AM EDT ----- Regarding: FW: wellness Set up at his convenience ----- Message ----- From: Ace Huff DO Sent: 01/16/2024 12:00 AM EDT To: Background Patient List Reminders Subject: wellness [facility]05-06-2024 Telephone encounter Note* Telephone Encounter - Francine Coffman - 01/21/2024 10:38 AM EDT Sent mychart msg [facility]05-06-2024 Telephone encounter Note* Telephone Encounter - Francine Coffman - 01/21/2024 10:38 AM EDT Will call back [facility]05-06-2024 Telephone encounter Note* Telephone Encounter - Francine Coffman - 01/21/2024 10:38 AM EDT Sending letter [facility]03-19-2024 History of Present illness Narrative* Larisa Woodard Ilya, WHITE MIXING OPERATOR-REGENERATOR OPERATOR - 12/04/2023 3:20 PM EDT Subjective Patient ID: Jose D Garrison is a 33 y.o. male. Onset of symptoms this am Has felt worse throughout the day Started with sore throat and headache No vomiting but stomach is sore Has had a few episodes of diarrhea Some cough Fatigue and was wheezing when he came in from the outside but not really short of breath Son was diagnosed with strep today - he became ill yesterday He has been tolerating food and fluids The following portions of the patient's history were reviewed and updated as appropriate: allergies, current medications, past family history, past medical history, past social history, past surgicalhistory, problem list, and medication reconciliation was completed including current medication andpost discharge medication. Review of Systems Constitutional: Positive for fatigue. HENT: Positive for postnasal drip, rhinorrhea, sinus pain and sore throat. Negative for ear pain. Eyes: Negative. Respiratory: Positive for cough and wheezing. Gastrointestinal: Positive for diarrhea and nausea. Genitourinary: Negative. Musculoskeletal: Positive for myalgias. Neurological: Positive for headaches. Psychiatric/Behavioral: Negative. Objective Physical Exam Vitals and nursing note reviewed. Constitutional: Appearance: He is obese. He is ill-appearing. HENT: Head: Normocephalic. Right Ear: Tympanic membrane, ear canal and external ear normal. Left Ear: Tympanic membrane, ear canal and external ear normal. Nose: Nose normal. Mouth/Throat: Mouth: Mucous membranes are moist. Pharynx: Posterior oropharyngeal erythema (mild erythema of the uvula) present. Eyes: Conjunctiva/sclera: Conjunctivae normal. Neck: Vascular: No carotid bruit. Cardiovascular: Rate and Rhythm: Normal rate and regular rhythm. Heart sounds: Normal heart sounds. No murmur heard. Pulmonary: Effort: Pulmonary effort is normal. No respiratory distress. Breath sounds: Normal breath sounds. Abdominal: General: Abdomen is flat. Bowel sounds are normal. There is distension. Palpations: Abdomen is soft. Musculoskeletal: Cervical back: Neck supple. No rigidity or tenderness. Right lower leg: No edema. Left lower leg: No edema. Lymphadenopathy: Cervical: No cervical adenopathy. Skin: General: Skin is warm and dry. Coloration: Skin is not jaundiced. Neurological: Mental Status: He is alert and oriented to person, place, and time. Psychiatric: Behavior: Behavior normal. Thought Content: Thought content normal. Judgment: Judgment normal. Assessment/Plan Jose D was seen today for headache, nasal congestion, sore throat, fatigue, diarrhea, cough and shortness of breath. Diagnoses and all orders for this visit: Flu-like symptoms - POCT Influenza A/Influenza B/SARS-COV-2 Veritor Pharyngitis, unspecified etiology - POCT rapid strep A Viral upper respiratory tract infection - [id number] 2-30-10 mg/5 mL syrup; Take 5 mL by mouth 4 (four) times a day as needed for congestion or cough. He truly did not have shortness of breath but did experience some wheezing after coughing that occurred while moving around outside His son has strep but his rapid strep was negative and his exam did not appear positive for strep He does appear to have a UrI He has not taken anything for it today so will recommend symptomatic treatment with fluids, rest and will provide something for cough and congestion - he is to rest and hydrate - call if worse in anyway CARMEN Austin 12/04/23 1656 [facility] NoteSubjective Patient ID: Jose D Garrison is a 33 y.o. male with h/o who presents for feeling fatigued and no libido HPI After stopping T injections - felt depressed, lethargy, reduced libido, headaches. Has been on clomid and anastrozole. - worsening symptoms over last 2 weeks. - concerned about s/s -Having second thoughts about attempting to have with a new partner. They have discussed that for his overall wellbeing if things do not improve they will rather start TRT. He fully understands the implications of infertility secondary to it. Partner was evaluated and she was told everything was ok. She is 33 yo, sees Dr. Marmolejo. Testicular atrophy No change Bilateral gr 2 varicocele No pain issues Exogenous T use Last injection was first week of September T cypionate 200 mg / week. Having severe withdrawal symptoms Wants to know if there are other options apart from p.o. tablets that he is taking Secondary Infertility - see questionnaire below - previous preg via IVF (twins) - 7 years ago last conception - no male evaluation was done at that time Polycythemia - elevated hematocrit due to TRT - patient has been regularly donating blood to combat elevated hematocrit - not on baby aspirin - going to donate blood tomorrow. *Fertility Questionnaire for New Patient* Referring provider: n/a Family MD: Dr. Huff Spouse's name: Karishma Age: 33 Market Research Manager: Dr. Marmolejo How long have you been trying to have a : 10 years Any prior pregnancies for your partner: 1 natural with a different partner, 1 twin via IVF with patient If yes when: 2016 (IVF) How many: 3 Any difficulty: No difficulty with first child, IVF and diagnosed with PCOS for second Any prior children fathered by you: 2 If yes when: 2016 How many: 2 Any difficulty: Sax2 at this time showed asthenospermia; underwent IVF Details: Any prior evaluation by a physician done on: Male: By whom: unknown When: 2017 Results: SA x2 showed asthenospermia. Currently taking clomid 25mg/day for past 6 months Female: By whom: unknown When: 2017 Results: PCOS Developmental History Male Did you have testes that were not in the scrotum (undescended testes) at ? 2 If so what age did you undergo surgical correction for these: n/a History of delayed puberty: no Age of shavin Age at sexual activity: 13 Sexually transmitted disease: no Sexual History Frequency of vaginal intercourse: 1-2x per week Are you using an ovulation kit to time intercourse? yes Problems with erections? Occasionally, currently taking cialis 5 mg everyday and 20 mg at time of intimacy. Reports difficulty obtaining and maintaining erections occasionally when hormones feel off regardless of cialis use. Morning erections still present History of prostate problems? no Is the ejaculation forceful? Occasionally, denies any difficulty with ejaculation Painful ejaculation? no Any pain in the testicular area? no Any swelling of testes or scrotum? no Injury to testes? no Injury to penis/urethra? no Injury to pelvic area? no Medication History Did you ever use testosterone? Has been on varying dosages of TRT for over two years, prescribed by Dr. Franklin urologist at [facility]. Inquired about low T due to repeat illness, poor bone density, and fatigue. T levels at this time were 100-300. Two years ago, same provider initiated anastrozole due to elevated E2. Patient currently on anastrozole 1 mg/week. Six months ago, patient told this provider he and his were desiring and was started on clomid 25 mg/day. Herbal/nutritional supplements? multivitamin Have you used body building steroids? Creatine and protein supplements last used in college (over 10 years ago) Marijuana/alcohol/illicit drug? 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 no Family history of male infertility: no Tuberculosis: no Cystic fibrosis: no Personal History: Difficulty smelling no Chronic headaches yes, not present in past few years Blurred vision no Dark areas in the field of vision no Breast enlargement no Nipple discharge no Review of Systems Constitutional: Negative for activity change. Respiratory: Negative for chest tightness. Gastrointestinal: Negative for abdominal pain. Genitourinary: Negative for penile pain and testicular pain. Neurological: Positive for headaches. Objective There were no vitals taken for this visit. Constitutional: General Appearance: healthy-appearing, well-nourished, and well-developed. Level of Distress: no (more content not included)...[facility]02-08-2024 NoteSemen Analysis Patient: Jose D Garrison Patient Date of : [id number] Patient Referring/Ordering Physician: No ref. provider found Performing lab: [facility] [address] [place] [address] Semen Analysis Information: Test Date: 10/25/2023 Time sample produced: 09: 11 am Tied to order ID# [id number] Collection Information: Days of Abstinence (2-7 days): 6 Days Collection Date: 10/25/2023 Collection Time: 09: 11 am Specimen Collection Location: Office Container Type: Approved Collected By: Sierra Salmeron Specimen Source: Other spermatozoa Specimen Note: Remainder of sample mixed well(200ul, 2 aliquots observed, No sperm seen Macroscopic Analysis: Report : Result Reference Range Volume (mL): (!) 0.5 mL >1.5 mL Color : Jefferson White, Jefferson, Yellow Viscosity (forms drops): Yes Forms Drops (Yes, No) Viscosity options: Slightly Viscous viscosity options Liquefaction : 25 minutes <15 minutes - 60 minutes pH: 7.6 7.2 or More Microscopic Analysis: Report : Result Reference Range sperm concentration (million/mL) average: 0 million/mL >15 million/mL Total Count: 0 million Motility % : (N/A) >40% million Progressive Motility %: (N/A) 31-34% Vitality (Live spermatozoa %): (N/A) >58% Round Cells (hpf): 0 million/mL <5 million/mL Peroxidase/Romanowsky Positive Leukocyte (hpf) : (N/A) <1 million/mL Agglutination/Clumping: (N/A) None Morphology (Elizabeth's Strict Criteria) Normal % : (N/A) >4% Comments: Notable for hypovolemia Impression: Azoospermia: No sperms found in the ejaculate. Common causes could be problems with sperm production/maturation due to genetic or acquired reasons, problems of transportation due to ductal obstruction, etc. Further workup for each of these is recommended. [employer] recommends examination of two-semen samples, collected one month apart, in the evaluation of male factor infertility. Dr. Eric Clark, PhD [employer]inery Salesperson [facility] #: [id number] CLIA #: [id number] [facility]01-18-2024 NoteSubjective Patient ID: oJse D Garrison is a 33 y.o. male with h/o who presents for No chief complaint on file.. HPI Testicular atrophy Bilateral gr 2 varicocele Exogenous T use Secondary Infertility - see questionnaire below - previous preg via IVF (twins) - no male evaluation was done at that time Polycythemia - elevated hematocrit due to TRT - patient has been regularly donating blood to combat elevated hematocrit *Fertility Questionnaire for New Patient* Referring provider: n/a Family MD: Dr. Huff Spouse's name: Karishma Age: 33 Market Research Manager: Dr. Marmolejo How long have you been trying to have a : 10 years Any prior pregnancies for your partner: 1 natural with a different partner, 1 twin via IVF with patient If yes when: 2016 (IVF) How many: 3 Any difficulty: No difficulty with first child, IVF and diagnosed with PCOS for second Any prior children fathered by you: 2 If yes when: 2016 How many: 2 Any difficulty: Sax2 at this time showed asthenospermia; underwent IVF Details: Any prior evaluation by a physician done on: Male: By whom: unknown When: 2016 Results: SA x2 showed asthenospermia. Currently taking clomid 25mg/day for past 6 months Female: By whom: unknown When: 2016 Results: PCOS Developmental History Male Did you have testes that were not in the scrotum (undescended testes) at ? 2 If so what age did you undergo surgical correction for these: n/a History of delayed puberty: no Age of shavin Age at sexual activity: 13 Sexually transmitted disease: no Sexual History Frequency of vaginal intercourse: 1-2x per week Are you using an ovulation kit to time intercourse? yes Problems with erections? Occasionally, currently taking cialis 5 mg everyday and 20 mg at time of intimacy. Reports difficulty obtaining and maintaining erections occasionally when hormones feel off regardless of cialis use. Morning erections still present History of prostate problems? no Is the ejaculation forceful? Occasionally, denies any difficulty with ejaculation Painful ejaculation? no Any pain in the testicular area? no Any swelling of testes or scrotum? no Injury to testes? no Injury to penis/urethra? no Injury to pelvic area? no Medication History Did you ever use testosterone? Has been on varying dosages of TRT for over two years, prescribed by Dr. Franklin [facility]. Inquired about low T due to repeat illness, poor bone density, and fatigue. T levels at this time were 100-300. Two years ago, same provider initiated anastrozole due to elevated E2. Patient currently on anastrozole 1 mg/week. Six months ago, patient told this provider he and his were desiring and was started on clomid 25 mg/day. Herbal/nutritional supplements? multivitamin Have you used body building steroids? Creatine and protein supplements last used in college (over 10 years ago) Marijuana/alcohol/illicit drug? 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 no Family history of male infertility: no Tuberculosis: no Cystic fibrosis: no Personal History: Difficulty smelling no Chronic headaches yes, not present in past few years Blurred vision no Dark areas in the field of vision no Breast enlargement no Nipple discharge no Review of Systems Constitutional: Negative for activity change. Respiratory: Negative for chest tightness. Gastrointestinal: Negative for abdominal pain. Genitourinary: Negative for penile pain and testicular pain. Neurological: Positive for headaches. Objective There were no vitals taken for this visit. Constitutional: General Appearance: healthy-appearing, well-nourished, and well-developed. Level of Distress: no acute distress. Ambulation: ambulating normally. Lungs: Respiratory effort: no dyspnea. Cardiovascular: Pulses including femoral / pedal: Femoral pulses normal, bilaterally, No swelling or varicosities. Abdomen: Inspection and Palpation: no tenderness, masses, or CVA tenderness and soft and non-distended. Liver: non-tender and no hepatomegaly. Spleen: non-tender and no splenomegaly. Hernia: none palpable. Male : Penis: no discharge or lesions and circumcised; Meatus - Normal size and location, no discharge.. Scrotum: no cysts, lesions, edema, or tenderness. Testes: normal testes and no swelling; Testis: RT. LT. - VOLUME: 20 gms 18 gms - consistency: soft - masses: none EPIDIDYMIS - not enlarged, non-tender. Symmetrical, flat, not congested Vasa: present and movable bilaterally Varicocele: bilateral - Grade: 2 (more content not included)...[facility] No [facility] information available[facility] Work Phone: Evaluation note* Diagnosis Onset Date Resolution Status Admit Date Contusion of right great toe without damage to nail acute October 29, 2024 4:24pm [facility] Work Phone: Evaluation note* Diagnosis Paroxysmal atrial fibrillation (CMS-HCC) Atrial fibrillation Essential hypertension Unspecified essential hypertension [facility] Diagnosis Flu-like symptoms- Primary Pharyngitis, unspecified etiology Viral upper respiratory tract infection Acute upper respiratory infections of unspecified site [facility] Diagnosis Acute right lumbar radiculopathy [facility] Diagnosis Paroxysmal atrial fibrillation (CMS-HCC) Atrial fibrillation Essential hypertension Unspecified essential hypertension [facility] Diagnosis Paroxysmal atrial fibrillation (CMS-HCC) Atrial fibrillation Essential hypertension Unspecified essential hypertension documented [facility]ructionsNot on filedocumented in this encounter [facility]ructionsNot on filedocumented in this encounter [facility]ructionsNot on filedocumented in this encounter [facility] on filedocumented in this encounter [facility] on filedocumented in this encounter [facility] on filedocumented in this encounter [facility] on filedocumented in this encounter [facility]Not on filedocumented in this encounter [facility] Summary Purpose Family History No Family History Records Found Relationship Condition Age at Onset Recorded Date/T blaine father Diabetes mellitus Unknown Hypertension Unknown Advance Directives No Advanced Directives Records Found Advance Directive Response Recorded Date/ Time Advance Directives No November 21 4:32pm Date Activated Date Inactivated Comments 11/09/2020 12:55 PM 11/10/2020 6:16 PM Advance Directive Response Recorded Date/ Time Advance Directives No March 7th, 20 24 3:32pm Latest Code Status on File Code Status Date Activated Date Inactivated Comments Full Code 11/09/2020 12:55 PM 11/10/2020 6:16 PM Chief Complaint and Reason for Visit Chief Complaint FERTILITY Chief Complaint Admit Date fertility August 11, 2024 9:45am Right foot pain, dropped couch on i t October 29, 2024 4:24pm Reason for Visit Admit Date Contusion of right great toe without dam age to nail October 29, 2024 4:24pm Additional Source Comments (unrecognized sect ion and content) No Status Records FoundNo Status Records FoundNo Status Records FoundNo Status Records FoundNo Status Records FoundNo Status Records Found INFORMATION SOURCE (unrecogn ized section and content) DATE CREATED AUTHOR 04/28/2022 [facility] DATE CREATED AUTHOR AUTHOR'S ORGANIZ ATION 11/23/2022 [facility] DATE CREATED AUTHOR AUTHOR'S ORGANIZ ATION 11/15/2023 [facility] DATE CREATED AUTHOR AUTHOR'S ORGANIZ ATION 12/05/2023 [facility] DATE CREATED AUTHOR AUTHOR'S ORGANIZ ATION 01/15/2024 [facility] DATE CREATED AUTHOR AUTHOR'S ORGANIZ ATION 11/10/2024 [facility] Care Teams (unrecognized sec tion and content) Team Status: Active Member Role Status Dates Ace Hfuf DO Primary Care Provider Active Team Status: Inactive Member Role Status Dates Ace Huff DO Primary Care Provider Active Start: May 22, 2024 End: May 22, 2024 Joesph Marmolejo DO Attending Provider Active Start : May 22, 2024 End: May 22, 2024 [employer] Salesperson Relationship Specialty Start Date End Date Ace Huff DO [address] [place] [address] PCP - General Family Medicine 10/28/20 Team Status: Inactive Member Role Status Dates Ace Huff DO Primary Care Provider Active Start: August 11, 2024 End: August 11, 2024 Joesph Marmolejo DO Attending Provider Active Start : August 11, 2024 End: August 11, 2024 Team Status: Inactive Member Role Status Dates Ace Huff DO Primary Care Provider Active Start: October 29, 2024 End: October 29, 2024 Romy Blanco APRN Attending Provider Active S tart: October 29, 2024 End: October 29, 2024 Team Status: Active Member Role Status Dates Ace Huff DO Primary Care Provider Active Start: October 29, 2024 Romy Blanco APRN Attending Provider Active S tart: October 29, 2024 [employer] Salesperson Relationship Specialty Start Date End Date Ace Huff DO [address] [place] [address] PCP - General Family Medicine 10/28/20 [employer] Salesperson Relationship Specialty Start Date End Date Ace Huff DO [address] [place] [address] PCP - General Family Medicine 10/28/20 [employer] Salesperson Relationship Specialty Start Date End Date Ace Huff DO [address] [place] [address] PCP - General Family Medicine 10/28/20 [employer] Salesperson Relationship Specialty Start Date End Date Ace Huff DO [address] [place] [address] PCP - General Family Medicine 10/28/20 [employer] Salesperson Relationship Specialty Start Date End Date Ace Huff DO [address] [place] [address] PCP - General Family Medicine 10/28/20 [employer] Salesperson Relationship Specialty Start Date End Date Ace Huff DO [address] [place] [address] PCP - General Family Medicine 10/28/20 [employer] Salesperson Relationship Specialty Start Date End Date DariaChavezAce ArmandoDO [address], [place] [address] PCP - General Family Medicine 10/28/20 Goals (unrecognized section and content) Goals may be documented in a n alternate sectionGoals may be documented in an alternate sectionGoals may be documented in an alternate section Reason for Visit (unrecogniz ed section and content) Reason Onset Date Comments Med Refill 10/29/2023 Reason Comments Med Refill Reason Comments Headache Nasal Congestion Sore Throat Fatigue Diarrhea Cough Shortness of Breath Reason Onset Date Comments Med Refill 12/08/2023 Reason Onset Date Comments Med Refill 05/28/2024 FOR RECORDS PERTAINING TO PATIENTS WHO ARE OR HAVE BEEN ENROLLED IN A CHEMICAL DEPENDENCY/SUBSTANCEABUSE PROGRAM, SOME INFORMATION MAY BE OMITTED. This clinical summary was aggregated from multiple sources. Caution should be exercised in using it in the provision of clinical care. This summary normalizes information from multiple sources, and as a consequence, information in this document may materially change the coding, format and clinical context of patient data. In addition, data may be omitted in some cases. CLINICAL DECISIONS SHOULD BE BASED ON THE PRIMARY CLINICAL RECORDS. [email or web address] [facility]. provides no warranty or guarantee of the accuracy or completeness of information in this document.
--- NOTE | 2024-11-11 07:57 | P.DS_ITS ---
DS: Providers Provider Date of admission: 11/10/24 16:14 Primary care physician: CAIT BECKETT Attending physician on admission: Teresita Walker Consults: 11/10/24 16:31 Consult to Cardiology Routine Reason for consultation: new onset Afib with RVR Has provider been notified: No Discharging clinician: Teresita Walker DS: Diagnosis Discharge Diagnosis (1) Atrial fibrillation with rapid ventricular response: (2) Hypomagnesemia: (3) Hypertension: Qualifiers: Hypertension type: primary hypertension Qualified Code(s): I10 - Essential (primary) hypertension (4) Low testosterone in male: DS: Summary Hospital Course Hospital Course: Patient is a 34 y.o White male with past medical history of Hypertension, testosterone deficiency, who presented to the ER yesterday after increased heart rate and SOB while at work. This lasted about 4 hours. He presented to the ER with HR in the 130's and some SOB and EKG was consistent with new onset Afib with RVR. He was given IV metoprolol 5mg IVP. HR came down to 100's. He notes he had episode similar in february of 2023 and he seen a blunger loader at [facility] had a normal work up including echo and holter monitor at that time. He denies any recent alcohol use, illicit drug use. May have underlying sleep apnea as he does snore according to his . He has had no dosage changes on his Testosterone and has been on it for 2 years. Recent Trip to [facility] and just returned last week. No family history of heart issues. Patient denies chest pain, no sob, just feels his HR beating fast. ER findings: WBC's 8.3, Hb 16.1, Cr 1.39, mag 1.7, K 3.8, Trop 7.5, TSH 3.388, ProBNP normal, UDS positive for THC. Magnesium was replaced and this morning was 2.1. His troponins were negative X 2, proBNP normal range, cholesterol 184/11/44/146, ha1c 5.1, TSH normal. He converted back to NSR last night after starting oral Metoprolol 50mg BID. He was also started on Eliquis 5mg BID last night. He had an Echocardiogram and results are still pending. He Will have close follow up with [facility] cardiology clinic and will be discharged on Eliquis x 4 weeks and Metoprolol and they can make a intermediate manager decision on the necessity of Eliquis at follow up. I spoke with Dr. Santana at [facility] who agreed with plan. Status at Discharge Functional status at discharge: independent ambulation Overall status at discharge: patient is back to baseline Time Spent with Patient Time attestation: Total time spent providing and/or coordinating discharge services: Time spent: greater than 30 minutes Exam Narrative Exam Narrative: General: Patient is alert, and oriented to person, place and time with normal affect, proper hygiene Skin: no visible rashes, or ulcers Head: atraumatic, acephalic Eyes: PERRLA, no nystagmus present, conjunctiva clear, no scleral icterus Ears: normal gross auditory acuity Heart: regular rate and regular rhythm, no murmurs/rubs/gallops Lungs: no audible wheezes, crackles and normal breath sounds all lung friedman Abdomen: Normal audible bowel sounds, no distension, No palpable masses, no organomegaly, no rebound/guarding/ or rigidity Musculoskeletal: no swelling bilateral lower extremities Neuro: CN II-X grossly intact Constitutional Vital Signs, click to edit/add: Last Vital Signs Temp 97.7 F 11/11/24 04:00 Pulse 61 11/11/24 06:00 Resp 12 11/11/24 04:00 BP 127/78 11/11/24 04:00 Pulse Ox 98 11/11/24 04:00 O2 Del Method Room Air 11/11/24 04:00 DS: Data Data Completed and Pending Labs on day of discharge: Labs from last 24 hours 11/11/24 11/10/24 04:38 12:50 WBC 6.8 8.3 RBC 5.64 5.53 Hgb 16.2 16.1 Hct 50.1 49.0 MCV 88.8 88.6 MCH 28.7 29.1 MCHC 32.3 32.9 RDW 13.4 13.2 Plt Count 263 245 MPV 11.6 11.8 Neut % (Auto) 59.4 62.6 Lymph % (Auto) 29.7 27.0 Mcminn % (Auto) 9.5 9.2 Eos % (Auto) 1.0 0.6 L Baso % (Auto) 0.3 0.2 Neut # (Auto) 4.0 5.2 Lymph # (Auto) 2.0 2.2 Mcminn # (Auto) 0.7 0.8 Eos # (Auto) 0.1 0.1 Baso # (Auto) 0.0 0.0 Abs Immat Gran (auto) 0.01 0.03 Imm/Tot Granulo (auto) 0.1 0.4 PT 10.9 INR 1.03 Sodium 139 140 Potassium 4.5 3.8 Chloride 103 101 Carbon Dioxide 28.7 29.6 Anion Gap 11.8 13.2 BUN 12.0 12.0 Creatinine 1.31 H 1.39 H Est GFR ( Amer) >60 >60 Est GFR (Non-Af Amer) >60 58 L BUN/Creatinine Ratio 9.2 8.6 Glucose 89 81 Estimat Average Glucose 100 Hemoglobin A1c 5.1 Calcium 9.0 9.2 Magnesium 2.1 1.7 L Total Bilirubin 0.5 0.5 AST 26 29 ALT 35 41 Alkaline Phosphatase 41 L 44 L Troponin I High Sens 6.6 7.5 NT-Pro-B Natriuret Pep 126.0 Total Protein 7.0 7.8 Albumin 3.8 4.4 Globulin 3.2 3.4 Albumin/Globulin Ratio 1.2 1.3 Triglycerides 146 Cholesterol 184 LDL Cholesterol, Calc 110.8 VLDL Cholesterol 29.2 HDL Cholesterol 44 Cholesterol/HDL Ratio 4.2 TSH 3.388 Urine Opiates Screen Negative Ur Buprenorphine Scrn Negative Ur Oxycodone Screen Negative Urine Methadone Screen Negative Ur Barbiturates Screen Negative U Tricyclic Antidepress Negative Ur Phencyclidine Scrn Negative Ur Amphetamines Screen Negative U Methamphetamines Scrn Negative U Benzodiazepines Scrn Negative Urine Cocaine Screen Negative U Cannabinoids Screen Positive A Ethanol Quant <3 Discharge Plan Discharge Disposition: Home, Self-Care Discharge Medications: New metoprolol tartrate 50 mg Tablet 50 mg PO BID 30 Days Qty: 60 0RF Eliquis 5 mg Tablet 5 mg PO BID 30 Days Qty: 60 0RF Continued lisinopril 20 mg tablet 20 mg PO QDAY tadalafil 5 mg tablet 5 mg PO QDAY testosterone cypionate 200 mg/mL oil 200 mg subcut Q7D Discontinued metoprolol succinate 25 mg tablet extended release 24 hr 25 mg PO DAILY Activity: increase activity as tolerated and resume usual activities as tolerated Diet: advance to your usual diet Print Language: Lithuanian Forms: Portal Instructions Follow Up Appointments: Jose Saldana., November 20 at 4:30 pm [address], [address], [place], [place] [phone] [facility] Cardiology when scheduled.
--- NOTE | 2024-11-11 08:08 | CA_ITS ---
Patient Name: VALERI COLEMAN MR#: [id number] : 1990 Exam Date: 11/11/2024 Ordering Doctor: CASTILLO EPSTEIN . ECHOCARDIOGRAM REPORT PROCEDURE: CA ECHO DOPPLER COMPLETE INDICATIONS: new onset Afib with RVR COMPARISON: None. DESCRIPTION: COMPLETE ECHOCARDIOGRAM Real-time transthoracic echocardiography with 2D, M-mode, spectral and color flow Doppler performed. QUALITY: Technical quality was good. LEFT VENTRICLE: Normal chamber size. Mild concentric left ventricular hypertrophy. Global left ventricular systolic function is normal. LV EF: Estimated left ventricular ejection fraction is 55-60%. DIASTOLIC: Normal diastolic function. ATRIAL SEPTUM: LEFT ATRIUM: Normal chamber size. RIGHT ATRIUM: Mild dilatation. RIGHT VENTRICLE: Normal chamber size. Normal right ventricular systolic function. TRICUSPID VALVE: Normal mobility and thickness. No stenosis with trivial regurgitation. No evidence of pulmonary hypertension. RVSP 31 mmHg. MITRAL VALVE: Normal mobility and thickness. No evidence of mitral valve stenosis. There is no mitral annular calcification. Trivial mitral regurgitation. AORTIC VALVE: Normal trileaflet appearance. No visible sclerosis. Normal leaflet mobility. No evidence of aortic valve stenosis. No aortic regurgitation. AORTIC ROOT: Borderline in size, measuring 3.9 cm. The ascending aorta is normal diameter and appearance, measuring 3.4 cm. PULMONIC VALVE: Normal thickness and mobility. No stenosis. Trivial regurgitation. PERICARDIUM: No evidence of pericardial effusion. IVC: Collapses with inspirations. Normal size. PLEURA: CONCLUSION: 1. Mild concentric left regular hypertrophy with normal systolic function. Estimated LVEF is 55 to 60%. 2. Normal right ventricular size and systolic function. 3. Mild right atrial dilatation. 4. No significant valvular dysfunction. 5. Normal diastolic function. 6. Normal right-sided pressures. 7. No pericardial effusion. 8. The patient appears to be in sinus rhythm during the exam. Adult Echocardiography Procedure Report Left Ventricle LVEDD (3.7 - 5.6 cm): 5.27 cm LVESD (2.2 - 4.0 cm): 3.34 cm LVIVS thickness (0.6 - 1.2 cm): 1.25 cm LVPW thickness (0.5 - 1.0 cm): 1.18 cm e': 0.16 m/s E - e': 3.92 LVOT Max Gradient: 3.12 mm[Hg] LVOT Area (cm2): 0.88 m/s Peak Velocity (LVOT): 0.88 m/s Mean Velocity (LVOT): 0.59 m/s LVOT Diameter 2.25 cm Left Atrium LA Volume Index (2D A2C): 27.37 ml/m2 Left Atrium Systolic Dimension: 3.94 cm Mitral Valve MV E to A Ratio: 2.21 Mitral Valve A-Wave Peak Velocity: 0.29 m/s Mitral Valve E-Wave Peak Velocity: 0.65 m/s Right Ventricle RV Internal Diastolic Dimension: 3.80 cm Aorta AO Root Diam: 3.90 cm Ascending Ao Diam: 3.38 cm Aortic Valve AoV Area (Peak Julien): 3.21 cm2, 3.21 cm2 AoV Area (VTI): 2.75 cm2, 2.75 cm2 Peak Velocity(Antegrade Flow): 1.09 m/s Peak Gradient(Antegrade Flow): 4.76 mm[Hg] Mean Velocity(Antegrade Flow): 0.71 m/s Mean Gradient(Antegrade Flow): 2.40 mm[Hg] Velocity Time Integral: 23.55 cm Tricuspid Valve Peak Velocity (Regurgitant Flow): 2.64 m/s, 2.26 m/s, 2.24 m/s Pulmonic Valve Mean Gradient: 2.13 mm[Hg], 2.86 mm[Hg] Mean Velocity: 0.68 m/s, 0.79 m/s Peak Velocity: 1.05 m/s Peak Gradient: 3.75 mm[Hg], 5.11 mm[Hg] Right Atrium Right Atrium Systolic Pressure: 46.43 ml, 46.43 ml Dictated by: Govind Frausto M.D. on 11/11/2024 at 15:30 Approved by: Govind Frausto M.D. on 11/11/2024 at 15:35
[2024-11-11] MEDS: METOPROLOL TARTRATE 50 MG TABLET PO (08:14)
[2024-11-11] MEDS: LISINOPRIL 20 MG TABLET PO (08:14)
[2024-11-11] MEDS: APIXABAN 5 MG TABLET PO (08:14)
--- NOTE | 2024-11-11 12:29 | CM.NOTE ---
Addendum entered by Bren Lockett 11/11/24 12:32: wrong date 11/11 is date of note. Original Note: Rounds made with Dr. Walker, pt converted to NSR. Pt will have echo today, discussed with pt about discharging on Eliquis. Dr. Walker will discuss with cardiology for further recommendations. Pt will discharge to home today.
--- NOTE | 2024-11-11 13:34 | PC.NURSE ---
discharge instructions given to pt, verbalized understanding. tele dc'd. pt up in room getting dressed, visitor at bedside. belongings packed per pt.
--- NOTE | 2024-11-11 13:36 | PC.NURSE ---
ambulated to exit with steady gait. discharged to private vehicle.
--- NOTE | 2024-11-12 13:56 | CM.DCFOLLOWU ---
Person spoke with:patient How are you feeling? well, just tired How is your pain?none Did you understand your discharge instructions?yes Do you have any questions about your discharge instructions?no Were you given any prescriptions at discharge?yes Were you able to get your prescriptions filled?yes Do you understand how to take your medications as ordered?yes Do you have any questions about your follow up appointment and do you plan to keep your follow up appointment? no questions, reviewed follow ups Is there anything else that you would like to discuss?no Questions/Comments/Concerns/Other:none
== END 2024-11-11 13:36 | disposition home or self-care (01) ==
LOC: ER 16:13 → ICU 11-11 07:11 → MS 11-11 07:11
PROVIDERS: Admitting Provider Family Medicine; Emergency Provider Emergency Medicine; PCP Family Medicine; Visit Provider Family Medicine
DX: I48.91 Unspecified atrial fibrillation (principal); Z87.891 Personal history of nicotine dependence; I10 Essential (primary) hypertension; E29.1 Testicular hypofunction; Z96.649 Presence of unspecified artificial hip joint; E83.42 Hypomagnesemia; Z79.890 Hormone replacement therapy; R07.89 Other chest pain
CPT/HCPCS: 36415; 71045; 80053; 80061; 80307; 80320; 83036; 83735; 83880; 84443; 84484; 85025; 85610; 93005; 93306; 96365; 96375; 99285; G0378; J3475

== ENCOUNTER 2024-12-23 19:53 | Outpatient (OUT) | payer BC, SELFPAY ==
--- OUTSIDE RECORDS SUMMARY | 2024-12-23 19:56 | XMS_ITS | CCD ---
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 Sperm morphologyOrdered By: Joesph Marmolejo on 05-22-2024 Spermatozoa Nom (Demetra) See comment >4.0 [facility] Comment on above: Samples with a low c ount will not give a morphology report. POCT Influenza A/Influenza B /SARS-COV-2 Veritoron 12-04-2023 External Poct Influenza A Antigen Negative [facility] External Poct Influenza B Antigen Negative [facility] SARS-CoV-2 (COVID-19) Ag IA.rapid Ql (Resp) Negative [facility] POCT rapid strep Aon 024 S. pyogenes Ag IA Ql (Unsp spec) Negative Negative [facility] MR LUMBAR SPINE WO CONTRASTo n 09-26-2023 [...] call to schedule, to be done at [facility] in [place], thank you! CT CSPINE WO CONon CT [...] by: JOHN GIL Date: 2022-11-15 11:46 Normal [facility] TSH W/REFLEX TO FT4on 2021 TSH W/REFLEX TO FT4 0.76 mIU/L Normal 0.40-4.50 [facility] Comment on above: Order Comment: FASTI NG:YES FASTING: YES Performed By: #### 3 6127 #### [facility] [place] [address] Shade Matcher: Jose Raul Carrillo MD [facility] METABOLIC [facility] 04-25-2022 Albumin [Mass/Vol] 4.9 g/dL Normal 3.6-5.1 [facility] Comment on above: Performed By: #### 7 600, 42396, 42739 #### [facility] [place] [address] Shade Matcher: Jose Raul Carrillo MD Albumin/Globulin [Mass ratio] 1.8 {ratio} Normal 1.0-2.5 [facility] Comment on above: Performed By: #### 7 600, 93491, 30030 #### [facility] [place] [address] Shade Matcher: Jose Raul Carrillo MD ALP [Catalytic activity/Vol] 41 U/L Normal 36-130 [facility] Comment on above: Performed By: #### 7 600, 63420, 58909 #### [facility] [place] [address] Shade Matcher: Jose Raul Carrillo MD ALT [Catalytic activity/Vol] 32 U/L Normal 9-46 [facility] Comment on above: Performed By: #### 7 600, 49630, 62918 #### [facility] of [place] [address] Shade Matcher: Jose Raul Carrillo MD AST [Catalytic activity/Vol] 49 U/L High 10-40 [facility] Comment on above: Performed By: #### 7 600, 31410, 14645 #### [facility] of [place] [address] Shade Matcher: Jose Raul Carrillo MD Bilirubin [Mass/Vol] 1.1 mg/dL Normal 0.2-1.2 [facility] Comment on above: Performed By: #### 7 600, 07892, 35100 #### [facility] of [place] [address] Shade Matcher: Jose Raul Carrillo MD BUN/CREATININE RATIO NOT APPLICABLE Normal 6-22 [facility] Comment on above: Performed By: #### 7 600, 76433, 18850 #### [facility] [place] [address] Shade Matcher: Jose Raul Carrillo MD Calcium [Mass/Vol] 9.7 mg/dL Normal 8.6-10.3 [facility] Comment on above: Performed By: #### 7 600, 51994, 72911 #### [facility] of [place] [address] Shade Matcher: Jose Raul Carrillo MD Chloride [Moles/Vol] 102 mmol/L Normal 98-110 [facility] Comment on above: Performed By: #### 7 600, 25681, 67311 #### [facility] of [place] [address] Shade Matcher: Jose Raul Carrillo MD CO2 [Moles/Vol] 23 mmol/L Normal 20-32 [facility] Comment on above: Performed By: #### 7 600, 60228, 39109 #### [facility] [address], [address] [place] [address] Shade Matcher: Jose Raul Carrillo MD Creatinine [Mass/Vol] 1.08 mg/dL Normal 0.60-1.[address] [facility] Comment on above: Performed By: #### 7 600, 89062, 75319 #### [facility] [address], [address] [place] [address] Shade Matcher: Jose Raul Carrillo MD GFR/1.73 sq M.predicted among non-blacks MDRD (S/P/Bld) [Vol rate/Area] 92 mL/min/{1.73_m2} Normal > OR = 60 [facility] Comment on above: Result Comment: The eGFR is based on the CKD-EPI 2020 equation. To calculate the new eGFR from a previous Creatinine or Cystatin C result, go to https://www.kidney.org/professionals/ kdoqi/gfr%5Fcalculator Performed By: #### 7 600, 62258, 39794 #### [facility] [address], [address] [place] [address] Shade Matcher: Jose Raul Carrillo MD Globulin (S) [Mass/Vol] 2.8 g/dL Normal 1.9-3.7 [facility] Comment on above: Performed By: #### 7 600, 10116, 25449 #### [facility] [place] [address] Shade Matcher: Jose Raul Carrillo MD Glucose [Mass/Vol] 83 mg/dL Normal 65-99 [facility] Comment on above: Result Comment: Fasting reference interval Performed By: #### 7 600, 03638, 80029 #### [facility] [place] [address] Shade Matcher: Jose Raul Carrillo MD Potassium [Moles/Vol] 3.9 mmol/L Normal 3.5-5.[address] [facility] Comment on above: Performed By: #### 7 600, 20650, 67518 #### [facility] [address], [address] [place] [address] Shade Matcher: Jose Raul Carrillo MD Protein [Mass/Vol] 7.7 g/dL Normal 6.1-8.1 [facility] Comment on above: Performed By: #### 7 600, 51700, 00155 #### [facility] of [address], [address] [place] [address] Shade Matcher: Jose Raul Carrillo MD Sodium [Moles/Vol] 140 mmol/L Normal 135-146 [facility] Comment on above: Performed By: #### 7 600, 92596, 11885 #### [facility] of [address], [address] [place] [address] Shade Matcher: Jose Raul Carrillo MD Urea nitrogen [Mass/Vol] 13 mg/dL Normal 7-25 [facility] Comment on above: Performed By: #### 7 600, 31835, 72259 #### [facility] [place] [address] Shade Matcher: Jose Raul Carrillo MD LIPID PANEL, [facility] 08-0 Cholesterol [Mass/Vol] 170 mg/dL Normal <200 [facility] Comment on above: Order Comment: FASTI NG:YES FASTING: YES Performed By: #### 7 600, 32976, 36794 #### [facility] of [place] [address] Shade Matcher: Jose Raul Carrillo MD Cholesterol in HDL [Mass/Vol] 38 mg/dL Low > OR = 40 [facility] Comment on above: Order Comment: FASTI NG:YES FASTING: YES Performed By: #### 7 600, 69644, 86830 #### [facility] of [place] [address] Shade Matcher: Jose Raul Carrillo MD Cholesterol in LDL [Mass/Vol] 111 mg/dL High [facility] Comment on above: Order Comment: FASTI NG:YES FASTING: YES Result Comment: Refe rence range: <100 Desirable range <100 mg/dL for primary prevention; <70 mg/dL for patients with CHD or diabetic patients with > or = 2 CHD risk factors. LDL-C is now calculated using the Cedrick calculation, which is a validated novel method providing better accuracy than the Friedewald equation in the estimation of LDL-C. Ian SS et al. KACY. 2013;310(19): 7501-6294 (http://education.[employer]/faq/TQV451) Performed By: #### 7 600, 24619, 04248 #### [facility] [address], [address] [place] [address] Shade Matcher: Jose Raul Carrillo MD Cholesterol.total/Chol esterol in HDL [Mass ratio] 4.5 {ratio} Normal <5.0 [facility] Comment on above: Order Comment: FASTI NG:YES FASTING: YES Performed By: #### 7 600, 33949, 17058 #### [facility] [address], [address] [place] [address] Shade Matcher: Jose Raul Carrillo MD NON HDL CHOLESTEROL 132 mg/dL (calc) High <130 [facility] Comment on above: Order Comment: FASTI NG:YES FASTING: YES Result Comment: For patients with diabetes plus 1 major ASCVD risk factor, treating to a non-HDL-C goal of <100 mg/dL (LDL-C of <70 mg/dL) is considered a therapeutic option. Performed By: #### 7 600, 18508, 53981 #### [facility] [address], [address] [place] [address] Shade Matcher: Jose Raul Carrillo MD Triglyceride [Mass/Vol] 99 mg/dL Normal <150 [facility] Comment on above: Order Comment: FASTI NG:YES FASTING: YES Performed By: #### 7 600, 29974, 30471 #### [facility] [place] [address] Shade Matcher: Jose Raul Carrillo MD VITAMIN D,25-OH,TOTAL,IAon 0 [...] D, (D2,D3), LC/MS/MS is recommended: order code 54506 (patients >2yrs). See Note 1 Note 1 For additional information, please refer to http://education.[employer]/faq/DUW427 (This link is being provided for informational/ educational purposes only.) Performed By: #### 7 600, 05029, 62758 #### [facility] [address] [facility], [address] [place] [address] Shade Matcher: Jose Raul Carrillo MD Vital Signs Date Time Vital Sign Value Performing Clinician Cali hernandez 10-29-2024 16:28-0500 Body height 182.88 cm AceExecNote DO Work Phone: [facility] 10-29-2024 16:28-0500 Body mass index (BMI) [Ratio] 37.5 kg/m2 Ace Furlong DO Work Phone: [facility] 10-29-2024 16:28-0500 Body temperature 98 [degF] Ace Furlong DO Work Phone: [facility] 10-29-2024 16:28-0500 Body weight 125.64 kg Ace Preventiceng DO Work Phone: [facility] 10-29-2024 16:28-0500 Diastolic blood pressure 76 mm[Hg] Ace Furlong DO Work Phone: [facility] 10-29-2024 16:28-0500 Heart rate 70 /min Ace Preventiceng DO Work Phone: [facility] 10-29-2024 16:28-0500 Respiratory rate 14 /min Ace Day Zero Projectlong DO Work Phone: [facility] 10-29-2024 16:28-0500 SaO2% (BldA) [Mass fraction] 99 % Ace Huff DO Work Phone: [facility] 10-29-2024 16:28-0500 Systolic blood pressure 136 mm[Hg] Ace Huff DO Work Phone: [facility] 12-04-2023 15:00-0400 Body height 182.9 cm Larisa Caraballo APRN-BACKHAUL DRIVER Work Phone: [employer] 12-04-2023 15:00-0400 Body mass index (BMI) [Ratio] 36.27 kg/m2 Larisa Caraballo APRN-BACKHAUL DRIVER Work Phone: [employer] 12-04-2023 15:00-0400 Body temperature 97.5 [degF] Larisa Caraballo APRN-BACKHAUL DRIVER Work Phone: [employer] 12-04-2023 15:00-0400 Body weight 121.29 kg Larisa LEÓNBACKHAUL DRIVER Work Phone: [employer] 12-04-2023 15:00-0400 Diastolic blood pressure 88 mm[Hg] Larisa LEÓNBACKHAUL DRIVER Work Phone: [employer] 12-04-2023 15:00-0400 Heart rate 75 /min Larisa LEÓNBACKHAUL DRIVER Work Phone: [employer] 12-04-2023 15:00-0400 SaO2% (BldA) [Mass fraction] 99 % Larisa LEÓNBACKHAUL DRIVER Work Phone: [employer] 12-04-2023 15:00-0400 Systolic blood pressure 118 mm[Hg] Larisa Caraballo APRN-BACKHAUL DRIVER Work Phone: [employer] Encounters Encounter Date Encounter Type Care Provider Facility Start: 11-26-2024 End: 11-26-2024 [facility] Start: 11-20-2024 End: 11-20-2024 Refill Ace [facility]avalalong [facility] Start: 10-29-2024 End: 10-29-2024 ambulatory Acefarhan Zavalalong DO Work Phone: [facility] Work Phone: Start: 10-29-2024 End: 10-29-2024 Patient encounter procedure Acefarhan Zavalalong DO Work Phone: [facility] Work Phone: Start: 10-07-2024 End: 10-07-2024 Orders Only Ace Zavalalong DO Work Phone: [facility] Start: 08-25-2024 End: 08-25-2024 Refill Ace Hillsng DO Work Phone: [facility] Comment on above: Paroxysmal atrial fi brillation (CMS-HCC); Essential hypertension Start: 08-11-2024 End: 08-11-2024 Patient encounter procedure Acefarhan Zavalalong DO Work Phone: [facility] Work Phone: Start: 08-11-2024 End: 08-11-2024 ambulatory Joesph Francie Facility:[facility] Start: 05-29-2024 End: 06-03-2024 [facility] Start: 05-28-2024 End: 05-28-2024 Refill Roshni Manny [facility] Comment on above: Paroxysmal atrial fi brillation (CMS-HCC); Essential hypertension Start: 05-22-2024 End: 05-22-2024 Patient encounter procedure DO Ace Furlong Work Phone: [facility] Work Phone: Start: 05-22-2024 End: 05-22-2024 ambulatory DO Ace Furlong Work Phone: [facility] Work Phone: Start: 01-21-2024 End: 01-25-2024 Telephone encounter Ace Huff [facility] Start: 01-14-2024 End: 01-14-2024 ambulatory ROB SERNA Not Available Start: 01-07-2024 End: 01-07-2024 ambulatory ROB SERNA Not Available Start: 01-01-2024 End: 01-01-2024 ambulatory ROB SERNA Not Available Start: 12-08-2023 Refill Larisa Caraballo CLINICAL CASE MANAGER-BACKHAUL DRIVER Work Phone: [facility] Comment on above: Acute right lumbar r adiculopathy Start: 12-04-2023 End: 12-04-2023 [facility] Start: 12-04-2023 End: 12-04-2023 Office outpatient visit 15 minutes Larisa Caraballo CLINICAL CASE MANAGER-BACKHAUL DRIVER [facility]: [facility] Comment on above: Flu-like symptoms (P rimary Dx); Pharyngitis, unspecified etiology; Viral upper respiratory tract infection Start: 11-26-2023 End: 11-27-2023 ambulatory KEILA B APLING Not Available Start: 11-20-2023 Refill cAe barrios DO [facility] Phone[facility] Comment on above: Paroxysmal atrial fi brillation ([facility]-HCC); Essential hypertension Start: 10-29-2023 [facility] Start: 10-09-2023 End: 10-09-2023 ambulatory ANN MARIE CASANOVA Not Available Start: 09-26-2023 End: 09-27-2023 ambulatory KEILA B APLING Not Available Start: 09-24-2023 End: 09-25-2023 ambulatory KEILA B APLING Not Available Start: 09-03-2023 End: 09-03-2023 [facility] Start: 11-15-2022 End: 11-15-[address] ACE HUFF Facility:[facility] Start: 10-09-2022 End: 10-09-[address] ACE HFUF Facility:[facility] Procedures Date Procedure Procedure Detail Performing Clinician Start: 10-29-2024 X-ray of right foot Chavez Huff DO Work Phone: Start: 12-04-2023 Iaadiadoo streptococ cus group a Larisa Caraballo CLINICAL CASE MANAGER-BACKHAUL DRIVER Work Phone: Start: 12-04-2023 POCT INFLUENZA A/INF LUENZA B/SARS-COV-2 VERITOR Larisa Caraballo CLINICAL CASE MANAGER-BACKHAUL DRIVER Work Phone: Start: 12-04-2023 Adult depression scr eening assessment Larisa Caraballo CLINICAL CASE MANAGER-BACKHAUL DRIVER Work Phone: Start: 07-09-2023 Adult depression scr eening assessment Roshni Manny [employer] Plan of Treatment Date Care Activity Detail Author Start: 12-04-2024 End: 12-04-2024 Patient encounter procedure 12/04/2024 10:00 AM EDT Office Visit [facility] [address] [place] [address] Ace Huff DO [address] [place] [address] [facility] Start: 12-03-2024 Adult BMI Screening Adult BMI Screen ing [facility] Start: 12-03-2024 Depression Screening Depression Scre ening [facility] Start: 12-03-2024 Tobacco Screening Tobacco Screening [facility] Start: 11-20-2024 End: 11-20-2024 Patient encounter procedure 11/20/2024 4:30 PM EST Office Visit [facility] [address] [place] [address] Ace Huff DO [address], [place] [address] [facility] Start: 09-03-2024 Adult BMI Screening Adult BMI Screen ing [facility] Start: 09-03-2024 Tobacco Screening Tobacco Screening [facility] Start: 07-09-2024 Depression Screening Depression Scre ening [facility] Start: 05-18-2024 Influenza vaccination Influenza Vacc [facility] Start: 12-16-2023 Influenza vaccination Influenza Vacc [facility] Comment on above: Postponed from 05/18 (Patient Refused) Start: 05-18-2023 Influenza vaccination Influenza Vacc [facility] Start: 2007 DTaP,Tdap and Td Vaccines (1 - Tdap) DTaP,Tdap and Td Vaccines (1 - Tdap) [facility] Start: 2006 Adult BMI Follow Up Plan Adult BMI Follow Up Plan [facility] XR Foot - right GE 3 Views [facility] Immunizations Immunization Date Immunization Notes Care Provider Fa katelyn 07-27-2017 Influenza, injectabl e, Madin Douglass Canine Kidney, preservative free, quadrivalent Roshni Manny [facility] 07-27-2017 influenza virus vaccine, unspecified formulation Roshni Manny [facility] Payers Date Payer Category Payer Self-pay 2021 [employer] Managed Care - Other [facility] [id number] 1988 Unknown [id number] [id number] .2.593 1988 Unknown [id number] 2.16.840.1.735616.3.579 .2.593 1988 Unknown [id number] 2.16.840.1.057203.3.579 .2.1286 1988 Unknown [id number] 2.16.840.1.519467.3.579 .2.1286 1988 Unknown [id number] 2.16.840.1.733460.3.579 .2.1259 1988 Unknown [id number] 2.16.840.1.939982.3.579 .2.1258 1988 Unknown [id number] 2.16.840.1.496326.3.579 .2.9 1988 Unknown [id number] 2.16.840.1.779641.3.579 .2.9 1988 Unknown [id number] 2.16.840.1.914454.3.579 .2.1259 1988 Unknown [id number] 2.16.840.1.892822.3.579 .2.9 1988 Unknown [id number] 2.16.840.1.389008.3.579 .2.1259 1988 Unknown [id number] 2.16.840.1.832035.3.579 .2.1259 1988 Unknown [id number] 2.16.840.1.287201.3.579 .2.1259 1959 Unknown 1959 Unknown [id number] Unknown [id number] 2.16.840.1.931782.3.579 .2.531 Unknown [id number] 2.16.840.1.424949.3.579 .2.531 Unknown [id number] 2.16.840.1.473989.3.579 .2.531 Social History Date Type Detail Facility Start: 11-22-2023 End: 11-22-2023 Tobacco smoking status NHIS Never smoked tobacco (finding) [facility] Start: 1990 Sex Assigned At Male F [facility] Start: 05-30-2022 Tobacco smoking stat us NHIS Ex-smoker [facility] Start: 09-17-2010 End: 09-17-2012 History of tobacco use Current smoker [facility] Start: 09-17-2010 End: 09-17-2012 History of tobacco use Cigarette Smoker [facility] Start: 05-30-2022 End: 05-31-2022 Cigarettes smoked current (pack per day) - Reported 0.3 [facility] Start: 05-30-2022 Tobacco use and exposure Forme r smokeless tobacco user [facility] Start: 12-04-2023 End: 11-11-2024 Alcoholic beverage intake Ex-drinker (finding) [facility] Start: 05-31-2022 End: 07-09-2023 [facility] [employer] [facility] Has the [employer], [employer], or [employer] threatened to shut off services in your home in past 12Mo No [facility] Do you belong to any clubs or organizations such as islam groups, unions, fraternal or athletic groups, or school groups? Yes [facility] Are you now , , , , never or living with a partner? [facility] How often to you hav e a drink containing alcohol? Never [facility] How many standard dr inks containing alcohol do you have on a typical day? Patient does not drink [facility] Do you feel stress - tense, restless, nervous, or anxious, or unable to sleep at night because your mind is troubled all the time - these days [OSQ] To some extent [facility] Start: 05-31-2022 Education 17 [facility] Start: 10-19-2021 Alcohol Comment not since 2018 [facility] Start: 1988 Sex assigned at Not on file P [facility] Start: 2015 End: 10-30-2024 Sex Male (finding) [facility] Medical Equipment Procedure Code Equipment Code Equipment Origin al Text Equipment Identifier Dates Ins Actb 56mm 36 mm Ntrl Altrx - Sna - [id number])[id number], [id number] FDA Start: 11-09-2020 Cup Actb 56mm Pn cl Sect Hip - Sna - [id number] ()[id number], [id number] FDA Start: 11-09-2020 Hd Fem 36mm +8.5 mm 08/30 Tpr - Sna - [id number] ()[id number])[id number], [id number] FDA Start: 11-09-2020 Hip Dep Pf Cerm/Cerm Construct - Sna - [id number] Start: 11-09-2020 Elmntr Hl Drlc Pncl Hip Mrthn - Sna - [id number] ()[id number])[id number], [id number] FDA Start: 11-09-2020 Scr Hip Canc Cnn Gription 30mm - Sna - [id number] ()[id number])[id number], [id number] FDA Start: 11-09-2020 Scr Hip Canc Cnn Gription 30mm - Sna - [id number] ()[id number])[id number], [id number] FDA Start: 11-09-2020 Corail Hip Syste m Cementless Femoral Stem [id number] Start: 11-09-2020 Comment on above: Description: HIGH OF FSET COLLAR Goals Date Patient Goal Desired Activity /State Personal health goal Comment on above: Formatting of this n ote might be different from the original. Evaluation of progress towards goal: Safe dc transition from hospital to home with family support and [facility] PT 360 Clinical Notes 12-04-2023 to 11-26-2024 Note Date & Type Note Facility 11-26-2024 Note [facility] Note Reason for cardiology consult: Paroxysmal A-fib Chief Complaint: Palpitation HPI: Valeri Garrison is a 34 y.o. male with history of hypertension, testosterone deficiency, and obesity Patient was in [facility] recently on 11/10/2024 when he presented due to fast heart rate associated with shortness of breath and chest tightness while at work in a meeting. EKG was consistent with atrial fibrillation with rapid ventricular rate. Patient reported similar episode in February 2023 after which he saw a hosting engineer in [facility] and he had normal cardiac workup. His magnesium was 1.7 and replaced. Potassium 3.8. TSH was normal. He was started on oral metoprolol and he converted back to sinus rhythm. He was started also on Eliquis 5 mg twice daily Other than that the patient is physically active and he denies any chest pain or shortness of breath at rest or with exertion. Denies orthopnea or paroxysmal nocturnal dyspnea or dizziness or syncope. He denies legs edema or legs discomfort on exertion. He admits snoring and waking himself up due to that. He feels sometimes sleepy during the daytime. He never had a sleep study. He does not drink any caffeine however he used to drink powder mix which has 200 mg of caffeine prior to workout but he stopped. He drinks a lot of water. He denies any alcohol. He smokes marijuana occasionally. Cardiology ROS: GENERAL: Denies fever, chills, night sweats, weight loss. HEENT: Denies changes in vision, photophobia, changes in hearing, epistaxis, oral bleeding. CARDIOVASCULAR: Denies chest pain, exertional dyspnea, orthopnea/PND, lower extremity edema, lightheadedness/dizziness. He came to the hospital with episode of palpitations associated with shortness of breath and chest tightness and he was found to have A-fib as described above RESPIRATORY: Denies SOB, coughing, wheezing GI: Denies abdominal pain, nausea/vomiting, heartburn, melena/hematochezia. RENAL: Denies dysuria, hematuria, flank pain. MSK: Denies muscle weakness/pain, arthralgias/joint pain. NEUROLOGIC: Denies LOC, weakness, numbness, headaches. SKIN: Denies abnormal rashes or bleeding. PSYCH: Denies significant anxiety, depression, sleep disturbances. Past Medical History He has a past medical history of Erectile dysfunction (2016), Hormone disorder (March 2021), and Hypertension. Surgical History He has a past surgical history that includes Neck surgery (N/A); Hip surgery; and Joint replacement (Oct 2020). Social History He reports that he quit smoking about 11 years ago. His smoking use included cigarettes. He started smoking about 12 years ago. He has a 0.5 pack-year smoking history. He has never been exposed to tobacco smoke. He quit smokeless tobacco use about 7 years ago. His smokeless tobacco use included chew. He reports that he does not currently use alcohol. He reports that he does not use drugs. Family History Family History Problem Relation Name Age of Onset Other (bladder cancer) Father Jorgito Thyroid cancer Father Jorgito Cancer Father Jorgito Hypertension Father Jorgiot Allergies Patient has no known allergies. Medications Current Outpatient Medications: anastrozole (Arimidex) 1 mg chemo tablet, Take 1 tablet (1 mg total) by mouth 1 (one) time per week, Disp: 30 tablet, Rfl: 1 cholecalciferol (Vitamin D-3) 25 MCG (1000 UT) capsule, Take 1,000 Units by mouth 1 (one) time each day at the same time., Disp: , Rfl: Eliquis 5 mg tablet, Take 1 tablet by mouth Twice daily at 6am and 6pm., Disp: , Rfl: lisinopril 20 mg tablet, Take 1 tablet by mouth in the morning., Disp: , Rfl: metoprolol tartrate (Lopressor) 50 mg tablet, Take 1 tablet by mouth Twice daily at 6am and 6pm., Disp: , Rfl: multivitamin tablet, Take 1 tablet by mouth in the morning., Disp: , Rfl: tadalafil (Cialis) 5 mg tablet, take 1 tablet by mouth once daily MAY INCREASE TO 4 TABLETS ON DAY ON INTIMACY, Disp: , Rfl: testosterone cypionate (Depo-Testosterone) 200 mg/mL injection, inject 0.6 milliliter subcutaneously every week ON THE SAME DAY, Disp: , Rfl: zinc gluconate 50 mg tablet, Take 50 mg by mouth in the morning., Disp: , Rfl: Last Recorded Vitals Visit Vitals BP 125/80 (BP Location: Right arm, Patient Position: Sitting) Pulse 58 Ht 1.829 m (6') Wt 126 kg (278 lb) SpO2 100% BMI 37.70 kg/m??? Smoking Status Former BSA 2.53 m??? Physical Examination: GENERAL: alert and oriented x3, well developed, in no acute distress. HEAD: atraumatic, normocephalic. EYES: ANETA, EOMI. NECK: trachea midline, no JVD present, no carotid bruits present. CARDIAC: S1, S2 present. RRR. No murmur, rubs, or gallops. RESPIRATORY: CTAB, no increased effort of breathing, no rales, rhonchi, or wheezing. ABDOMEN: soft, nontender, nondistended. EXTREMITIES: no lower extremity edema, peripheral pulses are 2+ bilaterally. No rash/skin discolorat (more content not included)... [facility] 10-29-2024 Evaluation note Diagnosis Onset Date Resolution Contusion of right great toe without damage to nail acute October 29 025 4:24pm [facility] Work Phone: 1(795) 332-825512-09-2024 Miscellaneous Notes* Telephone Encounter - Ace Huff DO - 08/25/2024 12:36 AM EST Rx sent in. He is due for a wellness anytime documented in this encounterBarney Children's Medical CenterEvalYou [id number] Telephone encounter Note* Telephone Encounter - Ace Huff DO - 08/25/2024 12:36 AM EST Rx sent in. He is due for a wellness anytime [facility] [id number] NoteSperm Rapid ProgressiveNovember 2023 10:06am2 %[facility] [id number] [address]11-25-2024 NoteSperm Non-ProgressiveNovember 2023 10:06am13 %[facility] [id number] [address]11-25-2024 NoteSperm Rapid ProgressiveNovember 2023 10:06am2 %[facility] [id number] [address]11-25-2024 NoteSperm Non-ProgressiveNovember 2023 10:06am13 %[facility] [id number] [address]09-12-2024 Miscellaneous Notes * Telephone Encounter - Bren Courtney CMA - 05/29/2024 9:15 AM EDT Patient contacted to schedule wellness * Telephone Encounter - Bren Courtney CMA - 05/29/2024 9:15 AM EDT LM to Cb documented in [facility] Telephone encounter Note* Telephone Encounter - Bren Courtney CMA - 05/29/2024 9:15 AM EDT Patient contacted to schedule wellness [facility]09-12-2024 Telephone encounter Note* Telephone Encounter - Bren Courtney CMA - 05/29/2024 9:15 AM EDT LM to Cb [facility]09-11-2024 Miscellaneous Notes* Telephone Encounter - Ace Huff DO - 05/28/2024 8:42 AM EDT Prescription sent in. He is due for a wellness anytime documented in this encounterUniversity [facility]09-11-2024 Telephone encounter Note* Telephone Encounter - Ace Huff DO - 05/28/2024 8:42 AM EDT Prescription sent in. He is due for a wellness anytime [facility]09-05-2024 NoteSperm Rapid ProgressiveSeptember 2023 7:24am1 %[facility] [id number] [address]09-05-2024 NoteSperm Non-ProgressiveSeptember 2023 7:24am30 %[facility] [id number] [address] [place], [place] 6747305-06-2024 Miscellaneous Notes * Telephone Encounter - Francineyolanda Coffman - 01/21/2024 10:38 AM EDT ----- [...] AM EDT Sending letter documented in this encounterUniversity [facility]05-06-2024 Telephone encounter Note* Telephone Encounter - Francine Coffman - 01/21/2024 10:38 AM EDT ----- Message from Ace Huff DO sent at 01/19/2024 10:55 AM EDT ----- Regarding: FW: wellness Set up at his convenience ----- Message ----- From: Ace Huff DO Sent: 01/16/2024 12:00 AM EDT To: Background Patient List Reminders Subject: wellness [facility]05-06-2024 Telephone encounter Note* Telephone Encounter - Francine Coffman - 01/21/2024 10:38 AM EDT Sent mychart msg [facility]05-06-2024 Telephone encounter Note* Telephone Encounter - Francine Coffman - 01/21/2024 10:38 AM EDT Will call back [facility]05-06-2024 Telephone encounter Note* Telephone Encounter - Francine Coffman - 01/21/2024 10:38 AM EDT Sending letter [facility]03-19-2024 History of Present illness Narrative* Glenn Kuns, CLINICAL CASE MANAGER-BACKHAUL DRIVER - 12/04/2023 3:20 PM EDT Subjective Patient ID: Valeri Garrison is a 33 y.o. male. Onset [...] Thought content normal. Judgment: Judgment normal. Assessment/Plan Valeri was seen today for headache, nasal congestion, sore throat, fatigue, diarrhea, cough and shortness of breath. Diagnoses and all orders for this visit: Flu-like symptoms - POCT Influenza A/Influenza B/SARS-COV-2 Veritor Pharyngitis, unspecified etiology - POCT rapid strep A Viral upper respiratory tract infection - [id number]-[id number] 2-30-10 mg/5 mL syrup; Take 5 mL [...] call if worse in anyway CARMEN Austin 12/04/236 documented in this encounterMcCullough-[facility] SystemEvaluation noteNo assessment information availableAvita [facility] Work Phone: evaluation note* Diagnosis Onset Date Resolution Status Admit Date Contusion of right great toe without damage to nail acute October 29, 2024 4:24pm [facility] Work Phone: Evaluation note* Diagnosis Paroxysmal atrial fibrillation ([facility]) Atrial fibrillation Essential hypertension Unspecified essential hypertension documented in this encounter [facility] SystemEvaluation note* Diagnosis Flu-like symptoms- Primary Pharyngitis, unspecified etiology Viral upper respiratory tract infection Acute upper respiratory infections of unspecified site documented in this encounter [facility] SystemEvaluation note* Diagnosis Acute right lumbar radiculopathy documented in this encounter [facility] SystemEvaluation note* Diagnosis Paroxysmal atrial fibrillation ([facility]) Atrial fibrillation Essential hypertension Unspecified essential hypertension documented in this encounter [facility] SystemEvaluation note* Diagnosis Paroxysmal atrial fibrillation ([facility]) Atrial fibrillation Essential hypertension Unspecified essential hypertension documented in this encounter [facility] SystemInstructionsNot on filedocumented in this encounter [facility] [...] Date/ Time Advance Directives No November 21 3:32pm Latest Code Status on File Code [...] CREATED AUTHOR AUTHOR'S ORGANIZ ATION 11/23/2022 [facility] DATE CREATED AUTHOR AUTHOR'S ORGANIZ ATION 12/05/2023 [facility] DATE CREATED AUTHOR AUTHOR'S ORGANIZ ATION 01/15/2024 [facility] DATE CREATED AUTHOR AUTHOR'S ORGANIZ ATION 11/10/2024 [facility] DATE CREATED AUTHOR AUTHOR'S ORGANIZ ATION 12/02/[address] [place] [address] Care Teams (unrecognized sec tion and content) Team Status: Active Member Role Status Dates Ace Huff DO Primary Care Provider Active Team Status: Inactive Member Role Status Dates Ace Huff DO Primary Care Provider Active Start: May 22, 2024 End: May 22, 2024 Joesph Marmolejo DO Attending Provider Active Start : May 22, 2024 End: May 22, 2024 Office Asst Relationship Specialty Start Date End Date Ace Huff ArmandoDO [address], [place] [address] PCP - General Family Medicine 10/28/20 Team [...] Provider Active S tart: October 29, 2024 Office Asst Relationship Specialty Start Date End Date Ace Huff DO [address], [place] [address] PCP - General Family Medicine 10/28/20 Office Asst Relationship Specialty Start Date End Date Ace Huff DO [address], [place] [address] PCP - General Family Medicine 10/28/20 Office Asst Relationship Specialty Start Date End Date Ace Huff DO [address] [place] [address] PCP - General Family Medicine 10/28/20 Office Asst Relationship Specialty Start Date End Date Ace Huff DO [address] [place] [address] PCP - General Family Medicine 10/28/20 Office Asst Relationship Specialty Start Date End Date Ace Huff DO [address] [place] [address] PCP - General Family Medicine 10/28/20 Office Asst Relationship Specialty Start Date End Date Ace Huff DO [address] [place] [address] PCP - General Family Medicine 10/28/20 Office Asst Relationship Specialty Start Date End Date Ace Huff DO [address] [place] [address] PCP - General Family Medicine 10/28/20 Goals [...] BE BASED ON THE PRIMARY CLINICAL RECORDS. [employer] [facility]. provides no warranty or guarantee of the accuracy or completeness of information in this document.
== END 2024-12-23 19:54 | disposition home or self-care (01) ==
LOC: SLEEP 19:53
PROVIDERS: PCP Internal Medicine Cardiovascular Disease; Visit Provider Internal Medicine Cardiovascular Disease
DX: G47.33 Obstructive sleep apnea (adult) (pediatric) (principal)
CPT/HCPCS: 95810

== ENCOUNTER 2025-03-05 10:22 | Outpatient (OUT) | payer BC, SELFPAY ==
--- NOTE | 2025-03-05 10:28 | XR_ITS ---
The [address] [address] Patient Name: VALERI COLEMAN MRN: [id number] date: 1990 Sex: M Assigned Patient Location: [facility] Current Patient Location: [facility] Accession/Order Number: [id number] Exam Date: 03/05/2025 11:03 Report Date: 03/05/2025 11:11 At the request of: CAIT BECKETT Procedure: XR thoracic spine 3V CLINICAL HISTORY: Acute neck pain radiating to the upper back for the past 2 weeks. S16.1XXA CERVICAL SPINE - 5 views: COMPARISON: CT 11/15/2022 AP, lateral, both oblique and odontoid views were obtained. There is continued reversal of the normal cervical lordosis and cervicothoracic levoscoliosis. There is no acute compression fracture or displacement. There is mild disc space narrowing at C6-7 and possibly at C7-T1. There is minor marginal spurring. The neuroforamen are patent. The atlantoaxial relationship is maintained. There is no prevertebral soft tissue swelling. XR/XR thoracic spine 3V IMPRESSION: LOSS OF NORMAL CERVICAL CURVATURE. MINOR DEGENERATIVE CHANGES. THORACIC SPINE - 3 views: COMPARISON: Chest x-ray 09/04/2019 AP, lateral and swimmer's views were obtained. There is dextroscoliotic curvature. There is no evidence of compression fracture or displacement. The pedicles are intact. There is mild endplate spurring. There are no paraspinal soft tissue abnormalities. IMPRESSION: SCOLIOSIS AND MILD DEGENERATIVE CHANGES. Impression dictated by: Nadia Messer M.D. 03/05/2025 11:11 AM Dictation Location: [place] [address] Electronically authenticated by: [id number] Y Date: 03/05/2025 11:11
--- NOTE | 2025-03-05 10:28 | XR_ITS ---
The [address] [address] Patient Name: VALERI COLEMAN MRN: [id number] date: 1990 Sex: M Assigned Patient Location: [facility] Current Patient Location: [facility] Accession/Order Number: [id number] Exam Date: 03/05/2025 11:03 Report Date: 03/05/2025 11:11 At the request of: CAIT BECKETT Procedure: XR thoracic spine 3V CLINICAL HISTORY: Acute neck pain radiating to the upper back for the past 2 weeks. S16.1XXA CERVICAL SPINE - 5 views: COMPARISON: CT 11/15/2022 AP, lateral, both oblique and odontoid views were obtained. There is continued reversal of the normal cervical lordosis and cervicothoracic levoscoliosis. There is no acute compression fracture or displacement. There is mild disc space narrowing at C6-7 and possibly at C7-T1. There is minor marginal spurring. The neuroforamen are patent. The atlantoaxial relationship is maintained. There is no prevertebral soft tissue swelling. XR/XR cervical spine 5V IMPRESSION: LOSS OF NORMAL CERVICAL CURVATURE. MINOR DEGENERATIVE CHANGES. THORACIC SPINE - 3 views: COMPARISON: Chest x-ray 09/04/2019 AP, lateral and swimmer's views were obtained. There is dextroscoliotic curvature. There is no evidence of compression fracture or displacement. The pedicles are intact. There is mild endplate spurring. There are no paraspinal soft tissue abnormalities. IMPRESSION: SCOLIOSIS AND MILD DEGENERATIVE CHANGES. Impression dictated by: Nadia Messer M.D. 03/05/2025 11:11 AM Dictation Location: [place] [address] Electronically authenticated by: [id number] Date: 03/05/2025 11:11
--- OUTSIDE RECORDS SUMMARY | 2025-03-05 10:28 | XMS_ITS | CCD ---
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 #### 7 600, 00093, 53129 #### [facility] [place] [address] Windows [employer] Developer: Jose Raul Carrillo MD BUN/CREATININE RATIO NOT APPLICABLE Normal 6-22 [facility] Comment on above: Performed By: #### 7 600, 45551, 03686 #### [facility] [place] [address] [employer] Developer: Jose Raul Carrillo MD Calcium [Mass/Vol] 9.7 mg/dL Normal 8.6-10.3 [facility] Comment on above: Performed By: #### 7 600, 10462, 87283 #### [facility] [place] [address] [employer] Developer: Jose Raul Carrillo MD Chloride [Moles/Vol] 102 mmol/L Normal 98-110 [facility] Comment on above: Performed By: #### 7 600, 78197, 93562 #### [facility] [place] [address] [employer] Developer: Jose Raul Carrillo MD CO2 [Moles/Vol] 23 mmol/L Normal 20-32 [facility] Comment on above: Performed By: #### 7 600, 38927, 71925 #### [facility] [place] [address] [employer] Developer: Jose Raul Carrillo MD Creatinine [Mass/Vol] 1.08 mg/dL Normal 0.60-1.[address] [facility] Comment on above: Performed By: #### 7 600, 14825, 18910 #### [facility] [place] [address] [employer] Developer: Jose Raul Carrillo MD GFR/1.73 sq M.predicted among non-blacks MDRD (S/P/Bld) [Vol rate/Area] 92 mL/min/{1.73_m2} Normal > OR = 60 [facility] Comment on above: Result Comment: The eGFR is based on the CKD-EPI 2020 equation. To calculate the new eGFR from a previous Creatinine or Cystatin C result, go to https://www.kidney.org/professionals/ kdoqi/gfr%5Fcalculator Performed By: #### 7 600, 40809, 71212 #### [facility] [place] [address] Windows [employer] Developer: Jose Raul Carrillo MD Globulin (S) [Mass/Vol] 2.8 g/dL Normal 1.9-3.7 [facility] Comment on above: Performed By: #### 7 600, 21520, 04898 #### [facility] [address], [address] [place] [address] Windows [employer] Developer: Joes Raul Carrillo MD Glucose [Mass/Vol] 83 mg/dL Normal 65-99 [facility] Comment on above: Result Comment: Fasting reference interval Performed By: #### 7 600, 51521, 48459 #### [facility] [place] [address] Windows [employer] Developer: Jose Raul Carrillo MD Potassium [Moles/Vol] 3.9 mmol/L Normal 3.5-5.3 [facility] Comment on above: Performed By: #### 7 600, 76733, 51485 #### [facility] [place] [address] Windows [employer] Developer: Jose Raul Carrillo MD Protein [Mass/Vol] 7.7 g/dL Normal 6.1-8.1 [facility] Comment on above: Performed By: #### 7 600, 72148, 16963 #### [facility] [address], [address] [place] [address] [employer] Developer: Jose Raul Carrillo MD Sodium [Moles/Vol] 140 mmol/L Normal 135-146 [facility] Comment on above: Performed By: #### 7 600, 07656, 16819 #### [facility] [address], [address] [place] [address] [employer] Developer: Jose Raul Carrillo MD Urea nitrogen [Mass/Vol] 13 mg/dL Normal 7-25 [facility] Comment on above: Performed By: #### 7 600, 75974, 07921 #### [facility] [address], [address] [place] [address] Windows [employer] Developer: Jose Raul Carrillo MD LIPID PANEL, [facility] Cholesterol [Mass/Vol] 170 mg/dL Normal <200 [facility] Comment on above: Order Comment: FASTI NG:YES FASTING: YES Performed By: #### 7 600, 27011, 27351 #### [facility] [address], [address] [place] [address] [employer] Developer: Jose Raul Carrillo MD Cholesterol in HDL [Mass/Vol] 38 mg/dL Low > OR = 40 [facility] Comment on above: Order Comment: FASTI NG:YES FASTING: YES Performed By: #### 7 600, 48978, 04246 #### [facility] [place] [address] Windows [employer] Developer: Jose Raul Carrillo MD Cholesterol in LDL [...] equation in the estimation of LDL-C. Ian CANALES et al. KACY. 2013;310(19): 0876-2645 (http://education.Vozeeme.Umii Products/faq/RFJ759) Performed By: #### 7 600, 29112, 33534 #### [facility] [address], [address] [place] [address] [employer] Developer: Jose Raul Carrillo MD Cholesterol.total/Chol esterol in HDL [Mass ratio] 4.5 {ratio} Normal <5.0 [facility] Comment on above: Order Comment: FASTI NG:YES FASTING: YES Performed By: #### 7 600, 64101, 39341 #### [facility] [address], [address] [place] [address] Windows [employer] Developer: Jose Raul Carrillo MD NON HDL CHOLESTEROL 132 mg/dL (calc) High <130 [facility] Comment on above: Order Comment: FASTI NG:YES FASTING: YES Result Comment: For patients with diabetes plus 1 major ASCVD risk factor, treating to a non-HDL-C goal of <100 mg/dL (LDL-C of <70 mg/dL) is considered a therapeutic option. Performed By: #### 7 600, 15185, 01557 #### [facility] [address], [address] [place] [address] Windows [employer] Developer: Jose Raul Carrillo MD Triglyceride [Mass/Vol] 99 mg/dL Normal <150 [facility] Comment on above: Order Comment: FASTI NG:YES FASTING: YES Performed By: #### 7 600, 15050, 81425 #### [facility] [place] [address] Windows [employer] Developer: Jose Raul Carrillo MD VITAMIN D,25-OH,TOTAL,IAon 0 [...] D, (D2,D3), LC/MS/MS is recommended: order code 55279 (patients >2yrs). See Note 1 Note 1 For additional information, please refer to http://education.Vozeeme.Umii Products/faq/FQB645 (This link is being provided for informational/ educational purposes only.) Performed By: #### 7 600, 90216, 16788 #### [facility] [address] [facility], [address] [place] [address] Windows Mobile Developer: Joes Raul Carrillo MD Vital Signs Date Time Vital Sign Value Performing Clinician Facility 12-30-2024 11:17-0400 Body height 182.9 cm Yevgeniy Hendrix MD Work Phone: [facility] 12-30-2024 11:17-0400 Body mass index (BMI) [Ratio] 39.6 kg/m2 Yevgeniy Hendrix MD Work Phone: [facility] 12-30-2024 11:17-0400 Body temperature 98.29 [degF] Yevgeniy Hendrix MD Work Phone: [facility] 12-30-2024 11:17-0400 Body weight 132.45 kg Yevgeiny Hendrix MD Work Phone: [facility] 12-30-2024 11:17-0400 Diastolic blood pressure 79 mm[Hg] Yevgeniy Hendrix MD Work Phone: [facility] 12-30-2024 11:17-0400 Heart rate 59 /min Yevgeniy Hendrix MD Work Phone: [facility] 12-30-2024 11:17-0400 SaO2% (BldA) [Mass fraction] 97 % Yevgeniy Hendrix MD Work Phone: [facility] 12-30-2024 11:17-0400 Systolic blood pressure 122 mm[Hg] Yevgeniy Hendrix MD Work Phone: [facility] 10-29-2024 16:28-0500 Body height 182.88 cm Ace Huff DO Work Phone: [facility] 10-29-2024 16:28-0500 Body mass index (BMI) [Ratio] 37.5 kg/m2 Ace Furlong DO Work Phone: [facility] 10-29-2024 16:28-0500 Body temperature 98 [degF] Ace Furlong DO Work Phone: [facility] 10-29-2024 16:28-0500 Body weight 125.64 kg Ace Furlong DO Work Phone: [facility] 10-29-2024 16:28-0500 Diastolic blood pressure 76 mm[Hg] Ace Furlong DO Work Phone: [facility] 10-29-2024 16:28-0500 Heart rate 70 /min Ace Furlong DO Work Phone: [facility] 10-29-2024 16:28-0500 Respiratory rate 14 /min Ace Furlong DO Work Phone: [facility] 10-29-2024 16:28-0500 SaO2% (BldA) [Mass fraction] 99 % Ace Furlong DO Work Phone: [facility] 10-29-2024 16:28-0500 Systolic blood pressure 136 mm[Hg] Ace Furlong DO Work Phone: [facility] 12-04-2023 15:00-0400 Body height 182.9 cm Larisa Caraballo DIRECTOR [employer] PROFESSIONAL Work Phone: [facility] 12-04-2023 15:00-0400 Body mass index (BMI) [Ratio] 36.27 kg/m2 Larisa Caraballo DIRECTOR [employer] PROFESSIONAL Work Phone: [facility] 12-04-2023 15:00-0400 Body temperature 97.5 [degF] Larisa Caraballo DIRECTOR [employer] PROFESSIONAL Work Phone: [facility] 12-04-2023 15:00-0400 Body weight 121.29 kg Larisa Caraballo DIRECTOR MUS[employer] PROFESSIONAL Work Phone: [facility] 12-04-2023 15:00-0400 Diastolic blood pressure 88 mm[Hg] Larisa Caraballo DIRECTOR [employer] PROFESSIONAL Work Phone: [facility] 12-04-2023 15:00-0400 Heart rate 75 /min Larisa Caraballo DIRECTOR [employer] PROFESSIONAL Work Phone: [facility] 12-04-2023 15:00-0400 SaO2% (BldA) [Mass fraction] 99 % Larisa Caraballo DIRECTOR [employer] PROFESSIONAL Work Phone: [facility] 12-04-2023 15:00-0400 Systolic blood pressure 118 mm[Hg] Larisa Caraballo DIRECTOR [employer] PROFESSIONAL Work Phone: [facility] Encounters Encounter Date Encounter Type Care Provider Facility Start: 01-27-2025 End: 01-27-2025 ambulatory [facility] Start: 12-30-2024 End: 12-30-2024 Patient encounter procedure Yevgeniy Hendrix MD Work Phone: [facility] Comment on above: Encounter for screen ing examination for sexually transmitted disease (Primary Dx); Fertility testing; Oligospermia; Low testosterone in male Start: 12-30-2024 End: 12-30-2024 ambulatory YEVGENIY HENDRIX [facility] Start: 11-26-2024 End: 11-26-2024 [facility] Start: 11-20-2024 End: 11-20-2024 Refill Ace Huff DO Work Phone: [facility] Start: 10-29-2024 End: 10-29-2024 ambulatory Ace Huff DO Work Phone: [facility] Work Phone: Start: 10-29-2024 End: 10-29-2024 Patient encounter procedure Ace Huff DO Work Phone: [facility] [place] Work Phone: Start: 10-07-2024 End: 10-07-2024 Orders Only Ace Huff DO [facility] Phone[facility] Start: 08-25-2024 End: 08-25-2024 Refill Ace Hillsng DO Work Phone: [facility] Comment on above: Paroxysmal atrial fi brillation ([facility]); Essential hypertension Start: 08-11-2024 End: 08-11-2024 Patient encounter procedure Acefarhan Hillsng DO Work Phone: [facility] [place] Work Phone: Start: 08-11-2024 End: 08-11-2024 ambulatory [facility] Start: 05-29-2024 End: 06-03-2024 [facility] Start: 05-28-2024 End: 05-28-2024 [facility] Comment on above: Paroxysmal atrial fi brillation ([facility]); Essential hypertension Start: 05-22-2024 End: 05-22-2024 Patient encounter procedure DO Ace Zavalalong Work Phone: [facility] [place] Work Phone: Start: 05-22-2024 End: 05-22-2024 ambulatory DO Ace Zavalalong Work Phone: [facility] Work Phone: Start: 01-21-2024 End: 01-25-2024 Telephone encounter Ace Hillsng DO [facility]: [facility] Start: 01-14-2024 End: 01-14-2024 ambulatory ROB SERNA Not Available Start: 01-07-2024 End: 01-07-2024 ambulatory ROB SERNA Not Available Start: 01-01-2024 End: 01-01-2024 ambulatory ROB SERNA Not Available Start: 12-08-2023 Refill Larisa Caraballo DIRECTOR [employer] PROF[employer]AL Work Phone: [facility] Comment on above: Acute right lumbar r adiculopathy Start: 12-04-2023 End: 12-04-2023 ambulatory [facility] Start: 12-04-2023 End: 12-04-2023 Office outpatient visit 15 minutes Larisa Caraballo DIRECTOR [employer] PROFESSIONAL Work Phone: [facility] Comment on above: Flu-like symptoms (P rimary Dx); Pharyngitis, unspecified etiology; Viral upper respiratory tract infection Start: 11-26-2023 End: 11-27-2023 ambulatory KEILA Hartley APLING Not Available Start: 11-20-2023 Refill Ace Hills ng DO Work Phone: [facility] Comment on above: Paroxysmal atrial fi brillation ([facility]); Essential hypertension Start: 10-29-2023 Refill Roshni Manny [facility] Start: 10-09-2023 End: 10-09-2023 ambulatory ANN MARIE Neftali CASANOVA Not Available Start: 09-26-2023 End: 09-27-2023 ambulatory KEILA B APLING Not Available Start: 09-24-2023 End: 09-25-2023 ambulatory KEILA B APLING Not Available Start: 09-03-2023 End: 09-03-2023 ambulatory [facility] Start: 11-15-2022 End: 11-15-[address] ACE HUFF Facility:[facility] Start: 10-09-2022 End: 10-09-[address] ACE HUFF Facility:[facility] Procedures Date Procedure Procedure Detail Performing Clinician Start: 10-29-2024 X-ray of right foot Chavez Huff DO Work Phone: Start: 12-04-2023 Iaadiadoo streptococ cus group a Larisa Caraballo DIRECTOR [employer] PROFESSIONAL Work Phone: Start: 12-04-2023 POCT INFLUENZA A/INF LUENZA B/SARS-COV-2 VERITOR Larisa Caraballo DIRECTOR [employer] PROFESSIONAL Work Phone: Start: 12-04-2023 Adult depression scr eening assessment Larisa Caraballo DIRECTOR [employer] PROFESSIONAL Work Phone: Start: 07-09-2023 Adult depression scr eening assessment Rohsni Manny BELL TIER Plan of Treatment Date Care Activity Detail Author Start: 2038 Zoster Vaccines (1 o f 2) Zoster Vaccines (1 of 2) [facility] Start: 05-18-2025 Influenza vaccination Influenz a Vaccine (Season Ended) [facility] Start: 01-29-2025 End: 03-31-2025 POCT SEMEN ANALYSIS COMPLETE WITH STRICT MORPHOLOGY POCT Semen Analysis Complete with Strict Morphology Lab Routine Fertility testing Expected: 01/29/2025 (Approximate), Expires: 03/31/2025 [facility] Work Phone: Comment on above: Expected: 01/29/2025 (Approximate), Expires: 03/31/2025 Start: 12-30-2024 End: 12-30-2025 Chlamydia trachomatis and Neisseria gonorrhoeae DNA [Identifier] in Unspecified specimen by MARIANNA with probe detection C. trachomatis / N. gonorrhoeae, Amplified, Urogenital Lab Routine Encounter for screening examination for sexually transmitted disease Expected: 12/30/2024 (Approximate), Expires: 12/30/2025 [facility] Work Phone: Comment on above: Expected: 12/30/2024 (Approximate), Expires: 12/30/2025 Start: 12-30-2024 End: 12-30-2025 Hepatitis B virus surface Ag [Presence] in Serum or Plasma by Immunoassay Hepatitis B surface antigen Lab Routine Encounter for screening examination for sexually transmitted disease Expected: 12/30/2024 (Approximate), Expires: 12/30/2025 [facility] Service Area Work Phone: Comment on above: Expected: 12/30/2024 (Approximate), Expires: 12/30/2025 Start: 12-30-2024 End: 12-30-2025 Hepatitis C virus Ab [Presence] in Serum Hepatitis C antibody Lab Routine Encounter for screening examination for sexually transmitted disease Expected: 12/30/2024 (Approximate), Expires: 12/30/2025 [facility] Work Phone: Comment on above: Expected: 12/30/2024 (Approximate), Expires: 12/30/2025 Start: 12-30-2024 End: 12-30-2025 HIV 1+2 Ab+HIV1 p24 Ag [Presence] in Serum or Plasma by Immunoassay HIV 1/2 Antigen/Antibody Screen with Reflex to Confirmation Lab Routine Encounter for screening examination for sexually transmitted disease Expected: 12/30/2024 (Approximate), Expires: 12/30/2025 [facility] Work Phone: Comment on above: Expected: 12/30/2024 (Approximate), Expires: 12/30/2025 Start: 12-30-2024 End: 12-30-2025 Treponema pallidum IgG+IgM Ab [Presence] in Serum by Immunoassay Syphilis Screen with Reflex Lab Routine Encounter for screening examination for sexually transmitted disease Expected: 12/30/2024 (Approximate), Expires: 12/30/2025 [facility] Work Phone: Comment on above: Expected: 12/30/2024 (Approximate), Expires: 12/30/2025 Start: 12-04-2024 End: 12-04-2024 Patient encounter procedure 12/04/2024 10:00 AM EDT Office Visit [facility] [address] [place] [address] Ace Huff, DO [address], [place] [address] [facility] Start: 12-03-2024 Adult BMI Screening Adult BMI Screen ing [facility] Start: 12-03-2024 Depression Screening Depression Scre ening [facility] Start: 12-03-2024 Tobacco Screening Tobacco Screening [facility] Start: 11-20-2024 End: 11-20-2024 Patient encounter procedure 11/20/2024 4:30 PM EST [facility] [address] [place] [address] Ace Huff DO [address], [place] [address] [facility] Start: 09-03-2024 Adult BMI Screening Adult BMI Screen ing [facility] Start: 09-03-2024 Tobacco Screening Tobacco Screening [facility] Start: 07-09-2024 Depression Screening Depression Scre ening [facility] Start: 05-18-2024 COVID-19 Vaccine ( season) COVID-19 Vaccine ( season) [facility] Start: 05-18-2024 Influenza vaccination Influenza Vacc ine [facility] Start: 12-16-2023 Influenza vaccination Influenza Vacc ine [facility] Comment on above: Postponed from 05/18 (Patient Refused) Start: 05-18-2023 Influenza vaccination Influenza Vacc ine [facility] Start: 2010 DTaP/Tdap/Td Vaccine s (1 - Tdap) DTaP/Tdap/Td Vaccines (1 - Tdap) [facility] Start: 2007 DTaP,Tdap and Td Vaccines (1 - Tdap) DTaP,Tdap and Td Vaccines (1 - Tdap) [facility] Start: 2007 Hepatitis B Vaccines (1 of 3 - 19+ 3-dose series) Hepatitis B Vaccines (1 of 3 - 19+ 3-dose series) [facility] Start: 2007 Pneumococcal Vaccine : Pediatrics and At-Risk Adult Patients (1 of 2 - PCV) Pneumococcal Vaccine: Pediatrics and At-Risk Adult Patients (1 of 2 - PCV) [facility] Start: 2006 Adult BMI Follow Up Plan Adult BMI Follow Up Plan [facility] Start: 2006 Diabetes mellitus screening Diabetes Screening [facility] Start: 2006 Hepatitis C screening Hepatitis C Sc reening [facility] Start: 2001 Varicella vaccination Varicell a Vaccines (1 of 2 - 13+ 2-dose series) [facility] Start: 1989 MMR Vaccines (1 of 1 - Standard series) MMR Vaccines (1 of 1 - Standard series) [facility] Start: 1988 HIV screening HIV Screening [facility] Start: 1988 Lipid panel Lipid Panel [facility] Start: 1988 Yearly Adult Physical Yearly Adult P hycal [facility] XR Foot - right GE 3 Views [facility] Immunizations Immunization Date Immunization Notes Care Provider Gareth zepeda 07-27-2017 Influenza, injectabl e, Madin [place] Canine Kidney, preservative free, quadrivalent Roshni Manny [facility] [employer] [facility] 07-27-2017 influenza virus vaccine, unspecified formulation Roshni Manny [facility] Payers Date Payer Category Payer Self-pay 2021 [employer] Rubye tyrell Managed Care [facility] [id number] 2021 Blue Cross Blue Florie tyrell Managed Care - Other ANTH [id number] 1988 Unknown [id number] 2.16.840.1.827329.3.579. 2.593 1988 Unknown [id number] 2.16.840.1.364922.3.579. 2.593 1988 Unknown [id number] 2.16.840.1.186506.3.579. 2.1286 1988 Unknown [id number] 2.16.840.1.479618.3.579. 2.1286 1988 Unknown [id number] 2.16.840.1.672917.3.579. 2.9 1988 Unknown [id number] 2.16.840.1.630965.3.579. 2.1259 1988 Unknown [id number] 2.16.840.1.230312.3.579. 2.1259 1988 Unknown [id number] 2.16.840.1.118685.3.579. 2.1259 1988 Unknown [id number] 2.16.840.1.627892.3.579. 2.1259 1988 Unknown [id number] 2.16.840.1.141197.3.579. 2.1259 1988 Unknown [id number] 2.16.840.1.569419.3.579. 2.1259 1988 Unknown [id number] 2.16.840.1.934431.3.579. 2.1259 1988 Unknown [id number] 2.16.840.1.272509.3.579. 2.1259 1988 Unknown [id number] 2.16.840.1.280932.3.579. 2.1245 1959 Unknown 1959 Unknown [id number] Unknown [id number] 2.16.840.1.358881.3.579. 2.531 Unknown [id number] 2.16.840.1.048835.3.579. 2.531 Unknown [id number] 2.16.840.1.764242.3.579. 2.531 Social History Date Type Detail Facility Start: 11-22-2023 End: 12-30-2024 Tobacco smoking status LAIS Never smoked tobacco (finding) [facility] Start: 1990 Sex Assigned At Male F [facility] Start: 05-30-2022 Tobacco smoking stat us LAIS Ex-smoker [facility] Start: 09-17-2010 End: 09-17-2012 History of tobacco use Current smoker [facility] Start: 09-17-2010 End: 09-17-2012 History of tobacco use Cigarette Smoker [facility] Start: 05-30-2022 End: 12-30-2024 Cigarettes smoked current (pack per day) - Reported 0.3 [facility] Start: 05-30-2022 Tobacco use and exposure Forme r smokeless tobacco user [facility] Start: 12-04-2023 End: 11-11-2024 Alcoholic beverage intake Ex-drinker (finding) [facility] Start: 07-09-2023 End: 12-30-2024 [facility] [employer] [facility] Has the [employer], or [employer] threatened to shut off services in your home in past 12Mo No [facility] Do you belong to any clubs or organizations such as yarsanism groups, unions, fraternal or athletic groups, or school groups? Yes [facility] Are you now , , , , never or living with a partner? [facility] How often to you hav e a drink containing alcohol? Never [facility] How many standard dr inks containing alcohol do you have on a typical day? Patient does not drink [facility] Do you feel stress - tense, restless, nervous, or anxious, or unable to sleep at night because your mind is troubled all the time - these days [OSQ] To some extent [facility] Start: 05-31-2022 Education 17 [facility] Start: 10-19-2021 Alcohol Comment [facility] 1990 Sex assigned at Not on file [employer] Start: 2015 End: 10-30-2024 Sex Male (finding) [facility] Start: 12-30-2024 Tobacco use and exposure Smoke less tobacco non-user [facility] Work Phone: Start: 12-30-2024 Alcoholic beverage intake Life time non-drinker (finding) [facility] Work Phone: Start: 12-20-2024 End: 12-30-2024 Exposure to SARS-CoV-2 (event) Not sure [facility] Medical Equipment Procedure Code Equipment Code Equipment Origin al Text Equipment Identifier Dates Ins Actb 56mm 36 mm Ntrl Altrx - Sna - [id number], [id number] FDA Start: 11-09-2020 Cup Actb 56mm Pn cl Sect Hip - Sna - [id number], [id number] FDA Start: 11-09-2020 Hd Fem 36mm +8.5 mm 12/14 Tpr - Sna - [id number] ()[id number])[id number] FDA Start: 11-09-2020 Hip Dep Pf Cerm/Cerm Construct - Sna - [id number] Start: 11-09-2020 Elmntr Hl Drlc Pncl Hip Mrthn - Sna - [id number] ()[id number])[id number] FDA Start: 11-09-2020 Scr Hip Canc Cnn Gription 30mm - Sna - [id number])[id number] FDA Start: 11-09-2020 Scr Hip Canc Cnn Gription 30mm - Sna - [id number])[id number], [id number] FDA Start: 11-09-2020 Corail Hip Syste [...] [facility]OMS PT 360 Clinical Notes 12-04-2023 to 01-27-2025 Yevgeniy Hendrix MD - 12/30/2024 11:15 AM EDTPatient Instructions Note Date & Type Note Facility 01-27-2025 Note [place] Electrophysiology Consult Note [place] Cardiology - [facility] Reason for visit: A-fib HPI: Valeri Garrison is a 34 y.o. year old with past medical history of hypertension testosterone deficiency and obesity was recently seen by Dr. Ca Connell after a recent hospitalization at [facility] in November 10, 2024 where he presented with tachycardia. EKG done at that time revealed the presence of atrial fibrillation with rapid ventricular rate initial workup that showed the thyroid function to be normal and he was started on metoprolol for rate control and converted back spontaneously to sinus rhythm. Thereafter he was placed on Eliquis 5 mg twice daily and discharged. He was seen again in the clinic and states that he is physically active with no other associated chest pain or shortness of breath. He does endorse history suggestive of MARITZA but has not had any proper sleep study yet. Echocardiogram done in October 2024 shows EF that is normal with mild right atrial dilatation. He said that he had an episode of A-fib 3 years ago although this was not confirmed with a diagnosis of EKG when he was coming out of COVID infection and states that he experienced the same, given this episode. During the time he was wearing the monitor he felt occasional palpitations but it is different from the one he experienced. He usually works out between 4 and 5 in the morning and his underlying and EKG strips could be reflective of this. He had an event monitor placed which showed evidence of occasional PVCs and presence of tachycardia noted on 12/26/2024 at 5:12 AM PMH: Past Medical History: Diagnosis Date Erectile dysfunction 2017 Hormone disorder March 2021 Hypertension PSH: Past Surgical History: Procedure Laterality Date HIP SURGERY JOINT REPLACEMENT Oct 2020 NECK SURGERY N/A SH: Social Determinants of Health Tobacco Use: Medium Risk (01/27/2025) Patient History Smoking Tobacco Use: Former Smokeless Tobacco Use: Former Passive Exposure: Never Alcohol Use: Not At Risk (05/31/2022) [facility] Frequency of Alcohol Consumption: Never Average Number of Drinks: Patient does not drink Frequency of Binge Drinking: Never Financial Resource Strain: Low Risk (04/05/2023) Received from [employer] [facility] Overall Financial Resource Strain (CARDIA) Difficulty of Paying Living Expenses: Not hard at all Food Insecurity: No Food Insecurity (12/04/2023) Received from [facility] Hunger Screening Within the past 12 months we worried whether our food would run out before we got money to buy more.: Never True Within the past 12 months the food we bought just didn't last and we didn't have money to get more.: Never True Transportation Needs: No Transportation Needs (04/05/2023) [facility] [employer] [facility] PRAPARE - Transportation Lack of Transportation (Medical): No Lack of Transportation (Non-Medical): No Physical Activity: Sufficiently Active (05/31/2022) [facility] Exercise Vital Sign Days of Exercise per Week: 5 days Minutes of Exercise per Session: 70 min Stress: Stress Concern Present (05/31/2022) Received from [employer] [facility] [place] [employer] - Occupational Stress Questionnaire Feeling of Stress : To some extent Social Connections: Moderately Integrated (05/31/2022) [facility] Social Connection and Isolation Panel [NHANES] Frequency of Communication with Friends and Family: Once a week Frequency of Social Gatherings with Friends and Family: Once a week Attends Sabianism Services: More than 4 times per year Active Member of Clubs or Organizations: Yes Attends Club or Organization Meetings: More than 4 times per year Marital Status: Intimate Partner Violence: Unknown (11/08/2023) [place] Safety & Environment Fear of Current or Ex-Partner: Not on file Emotionally Abused: Not on file Physically Abused: Not on file Sexually Abused: Not on file Physically or Sexually Abused: Not on file Depression: Not at risk (12/30/2024) Received from [facility] PHQ-2 Patient Health Questionnaire-2 Score: 0 Housing Stability: Low Risk (04/05/2023) [facility] Housing Instability Are you worried or concerned that in the next two months you may not have stable housing that you own, rent or stay in as a part of a household?: No Utilities: Not At Risk (07/09/2023) Received from [facility], [facility] Utilities Threatened with loss of utilities: No Health Literacy: Not on file Allergies: No Known Allergies Weight: 131kg Vi (more content not included)... [facility] 12-30-2024 History of Present illness Narrative NEW FERTILITY PATIENT VISIT- Male Partner Partner information: Karishma Garrison 09/24/1990 Valeri Garrison is a 34 y.o. 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 Total Right Hip Replacement. Spinal Surgery Smoking:No Alcohol Use: No Drug Use: No Medications: Metoprolol, lisinopril, Testosterone, HCG Injuries: No STD: No Please select all that are applicable: SA: Yes SA Results: No 0.5 ml 5.7 mil/mL 31% motility 65% normal morphology -Was found to have low testosterone and now is on Testosterone replacement + HCG injections -Above SA is on T replacement + hCG Prior Labs Lab Results Date Done Hepatitis B surface antigen: No results found for requested labs within last 365 days. No results found for requested labs within last 365 days. Hepatitis C antibody: No results found for requested labs within last 365 days. No results found for requested labs within last 365 days. HIV Antigen Antibody screen with reflex: No results found for requested labs within last 365 days. No results found for requested labs within last 365 days. Syphilis screening with reflex: No results found for requested labs within last 365 days. No results found for requested labs within last 365 days. GC: No results found for requested labs within last 365 days. No results found for requested labs within last [address]: No results found for requested labs within last 365 days. No results found for requested labs within last 365 days. PMH History reviewed. No pertinent past medical history. MEDICATIONS Current Outpatient Medications on File Prior to Visit Medication Sig Dispense Refill cholecalciferol (Vitamin D-3) 25 mcg (1,000 units) capsule Take 1 capsule (1,000 Units) by mouth. Eliquis 5 mg tablet Take 1 tablet (5 mg) by mouth twice a day. lisinopril 20 mg tablet Take 1 tablet (20 mg) by mouth once daily. metoprolol tartrate (Lopressor) 25 mg tablet Take 1 tablet (25 mg) by mouth twice a day. sauabdhhcawg-Qr-ywtm-minerals tablet Take 1 tablet by mouth once daily. tadalafil (Cialis) 5 mg tablet take 1 tablet by mouth once daily MAY INCREASE TO 4 TABLETS ON DAY ON INTIMACY testosterone cypionate (Depo-Testosterone) 200 mg/mL injection inject 0.6 milliliter subcutaneously every week ON THE SAME DAY zinc gluconate 50 mg tablet Take 1 tablet (50 mg) by mouth once daily. No current facility-administered medications on file prior to visit. PSH History reviewed. No pertinent surgical history. SOCIAL HISTORY Social History Tobacco Use Smoking status: Never Smokeless tobacco: Never Substance Use Topics Alcohol use: Never Drug use: Never FAMILY HISTORY No family history on file. BMI: BMI Readings from Last 1 Encounters: 12/30/24 39.60 kg/m VITALS: BP 122/79 Pulse 59 Temp 36.8 C (98.3 F) (Temporal) Ht 1.829 m (6') Wt 132 kg (292 lb) SpO2 97% BMI 39.60 kg/m ASSESSMENT 34 y.o. male presents with partner for infertility evaluation, currently on T and hCG SA: Oligospermia PLAN Orders Placed This Encounter Procedures Hepatitis B surface antigen Hepatitis C antibody HIV 1/2 Antigen/Antibody Screen with Reflex to Confirmation Syphilis Screen with Reflex C. trachomatis / N. gonorrhoeae, Amplified, Urogenital POCT Semen Analysis Complete with Strict Morphology Referral to Urology PARTNER Yes Semen Analysis: Ordered Yes Genetic screening: Waiver STDs as above Referral to Dr. Younger FOLLOW UP Follow up with partner for follow up visit as directed to review result and further management. Dr. Younger referral: Please schedule a visit with our reproductive urologist Dr. Albrecht at [phone] Yevgeniy Hendrix 12/30/2024 12:25 PM documented in this encounter [facility] Work Phone: 12-30-2024 Instructions Yevgeniy Hendrix MD - 12/30/2024 11:15 AM EDT ASSESSMENT 34 y.o. male presents with partner for infertility evaluation, currently on T and hCG SA: Oligospermia PLAN Orders Placed This Encounter Procedures Hepatitis B surface antigen Hepatitis C antibody HIV 1/2 Antigen/Antibody Screen with Reflex to Confirmation Syphilis Screen with Reflex C. trachomatis / N. gonorrhoeae, Amplified, Urogenital POCT Semen Analysis Complete with Strict Morphology Referral to Urology PARTNER Yes Semen Analysis: Ordered Yes Genetic screening: Waiver STDs as above Referral to Dr. Younger FOLLOW UP Follow up with partner for follow up visit as directed to review result and further management. Dr. Younger referral: Please schedule a visit with our reproductive urologist Dr. Albrecht at [phone] Yevgeniy Hendrix 12/30/2024 12:25 PM documented in this encounter [facility] Work Phone: 11-26-2024 Note [facility] Clinic Note Reason for cardiology consult: Paroxysmal A-fib Chief Complaint: Palpitation HPI: Valeri Garrison is a 34 y.o. male with history of hypertension, testosterone deficiency, and obesity Patient was in [facility] recently on 11/10/2024 when he presented due to fast heart rate associated with shortness of breath and chest tightness while at work in a meeting. EKG was consistent with atrial fibrillation with rapid ventricular rate. Patient reported similar episode in February 2023 after which he saw a boat driver in [facility] and he had normal cardiac workup. His [...] Father Jorgito Cancer Father Jorgito Hypertension Father Jorgito Allergies Patient has no known allergies. Medications [...] No rash/skin discolorat (more content not included)... [facility] 10-29-2024 Evaluation note Diagnosis Onset Date Resolution Contusion of right great toe without damage to nail acute October 29 025 4:24pm [facility] Work Phone: 1(832) 618-877012-09-2024 Miscellaneous Notes* Telephone Encounter - Ace Huff DO - 08/25/2024 12:36 AM EST Rx sent in. He is due for a wellness anytime [facility] Tele[facility] encounter Note* Telephone Encounter - Ace Huff DO - 08/25/2024 12:36 AM EST Rx sent in. He is due for a wellness anytime [facility]11-25-2024 NoteSperm Rapid ProgressiveNovember 2023 10:06am2 %[facility] [id number] [address]11-25-2024 NoteSperm Non-ProgressiveNovember 2023 10:06am13 %[facility] [id number] [address]11-25-2024 NoteSperm Rapid ProgressiveNovember 2023 10:06am2 %[facility] [id number] [address]11-25-2024 NoteSperm Non-ProgressiveNovember 2023 10:06am13 [facility] [id number] [address] [place] [address]09-[facility]-2024 Miscellaneous Notes * Telephone Encounter - Bren Courtney CMA - 05/29/2024 9:15 AM EDT Patient contacted to schedule wellness * Telephone Encounter - Bren Courtney CMA - 05/29/2024 9:15 AM EDT JADYN to Cb documented in this encounterA[facility]09-12-2024 Telephone encounter Note* Telephone Encounter - Bren Courtney CMA - 05/29/2024 9:15 AM EDT Patient contacted to schedule wellness [facility] [employer] [id number] Telephone encounter Note* Telephone Encounter - Bren Courtney CMA - 05/29/2024 9:15 AM EDT LM to Cb [facility] [employer] [id number] Miscellaneous Notes* Telephone Encounter - Ace Huff DO - 05/28/2024 8:42 AM EDT Prescription sent in. He is due for a wellness anytime documented in this encounterA[facility]09-[facility]-20[facility] Telephone encounter Note* Telephone Encounter - Ace Huff DO - 05/28/2024 8:42 AM EDT Prescription sent in. He is due for a wellness anytime [facility]09-05-2024 NoteSperm Rapid ProgressiveSeptember 2023 7:24am1 %[facility] [id number] [address]09-05-2024 NoteSperm Non-ProgressiveSeptember 2023 7:24am30 %[facility] [id number] [address]05-06-2024 Miscellaneous Notes * Telephone Encounter - Francine [...] AM EDT Sending letter documented in this encounterA[facility]05-06-2024 Telephone encounter Note* Telephone Encounter - Francine Coffman - 01/21/2024 10:38 AM EDT ----- Message from Ace Huff DO sent at 01/19/2024 10:55 AM EDT ----- Regarding: FW: wellness Set up at his convenience ----- Message ----- From: Ace Huff DO Sent: 01/16/2024 12:00 AM EDT To: Background Patient List Reminders Subject: wellness [facility]05-06-2024 Telephone encounter Note* Telephone Encounter - Francine Coffman - 01/21/2024 10:38 AM EDT Sent mychart msg [facility]05-06-2024 Telephone encounter Note* Telephone Encounter - Francine Coffman - 01/21/2024 10:38 AM EDT Will call back [facility]05-06-2024 Telephone encounter Note* Telephone Encounter - Francine Coffman - 01/21/2024 10:38 AM EDT Sending letter [facility]03-19-2024 History of Present illness Narrative* Tarah Kuns, DIRECTOR MUSIC-COMMERCIAL PARTS PROFESSIONAL - 12/04/2023 3:20 PM EDT Subjective Patient [...] A Viral upper respiratory tract infection - ctnllybgealuons-xcvqfrglp-LJ 2-30-10 mg/5 mL syrup; Take 5 mL [...] CARMEN Austin 12/04/23 1656 [facility] SystemEvaluation noteNo assessment information availableSelect Medical [facility] Work Phone: Evaluation note* Diagnosis Onset Date Resolution Status Admit Date Contusion of right great toe without damage to nail acute October 29, 2024 4:24pm [facility] Work Phone: Evaluation note* Diagnosis Paroxysmal atrial fibrillation ([facility]-H[facility]) Atrial fibrillation Essential hypertension Unspecified essential hypertension [facility] encounter [facility]* Diagnosis Flu-like symptoms- Primary Pharyngitis, unspecified etiology Viral upper respiratory tract infection Acute upper respiratory infections of unspecified site documented in this encounter [facility]* Diagnosis Acute right lumbar radiculopathy documented in this encounter [facility]* Diagnosis Paroxysmal atrial fibrillation (CMS-HCC) Atrial fibrillation Essential hypertension Unspecified essential hypertension [facility] this encounter [facility]* Diagnosis Paroxysmal atrial fibrillation (CMS-HCC) Atrial fibrillation Essential hypertension Unspecified essential hypertension [facility] this encounter [facility]* Diagnosis Encounter for screening examination for sexually transmitted disease- Primary Fertility testing Oligospermia Low testosterone in male documented in this encounter [facility] Work Phone: InstructionsNot on filedocumented in this encounter [facility] SystemInstructionsNot on filedocumented in this encounter [facility] SystemInstructionsNot on filedocumented in this encounter [...] CREATED AUTHOR AUTHOR'S ORGANIZ ATION 11/23/2022 [facility] DATE CREATED AUTHOR AUTHOR'S ORGANIZ ATION 12/05/2023 [facility] DATE CREATED AUTHOR AUTHOR'S ORGANIZ ATION 01/15/2024 [facility] EPIC DATE CREATED AUTHOR AUTHOR'S ORGANIZ ATION 11/10/2024 [facility] DATE CREATED AUTHOR AUTHOR'S ORGANIZ ATION 01/04/2025 [facility] DATE CREATED AUTHOR AUTHOR'S ORGANIZ ATION 01/28/2025 [facility] Care Teams (unrecognized sec tion and content) Team Status: Active Member Role Status Dates Ace Huff DO Primary Care Provider Active Team Status: Inactive Member Role Status Dates Ace Huff DO Primary Care Provider Active Start: May 22, 2024 End: May 22, 2024 Joesph Marmolejo DO Attending Provider Active Start : May 22, 2024 End: May 22, 2024 Early Childhood Special Educator Relationship Specialty Start Date End Date Ace Huff DO [address] [place] [address] PCP - General Family Medicine 10/28/20 Team [...] Provider Active S tart: October 29, 2024 Early Childhood Special Educator Relationship Specialty Start Date End Date Ace Huff DO [address], [place] [address] PCP - General Family Medicine 10/28/20 Early Childhood Special Educator Relationship Specialty Start Date End Date Ace Huff DO [address], [place] [address] PCP - General Family Medicine 10/28/20 Early Childhood Special Educator Relationship Specialty Start Date End Date Ace Huff DO [address] [place] [address] [address] PCP - General Family Medicine 10/28/20 Early Childhood Special Educator Relationship Specialty Start Date End Date Ace Huff DO [address] [place] [address] [place] [address] PCP - General Family Medicine 10/28/20 Early Childhood Special Educator Relationship Specialty Start Date End Date Ace Huff DO [address] [place] [address] PCP - General Family Medicine 10/28/20 Early Childhood Special Educator Relationship Specialty Start Date End Date Ace Huff DO [address] [place] [address] PCP - General Family Medicine 10/28/20 Early Childhood Special Educator Relationship Specialty Start Date End Date Ace Huff DO [address] [place] [address] PCP - General Family Medicine 10/28/20 Goals [...] Reason Onset Date Comments Med Refill 05/28/2024 Reason Comments Infertility FOR RECORDS PERTAINING TO PATIENTS WHO ARE [...] BE BASED ON THE PRIMARY CLINICAL RECORDS. [facility]. provides no warranty or guarantee of the accuracy or completeness of information in this document.
== END 2025-03-05 10:23 | disposition home or self-care (01) ==
PROVIDERS: PCP Family Medicine; Visit Provider Family Medicine
DX: S29.019A Strain of muscle and tendon of unspecified wall of thorax, initial encounter (principal); S16.1XXA Strain of muscle, fascia and tendon at neck level, initial encounter
CPT/HCPCS: 72050; 72072